=== PATIENT | female | born 1940 | race Caucasian/White ===

== ENCOUNTER 2022-07-23 20:19 | Inpatient (IN) | payer MEDICARE, OTHER, SELFPAY ==
[2022-07-23] VITALS (15 sets, daily range): BP systolic 120–147; BP diastolic 74–94; PULSE 102–148; RESP 16; TEMP 36.6; O2SAT 95–100; BMI 24.2
--- NOTE | 2022-07-23 21:56 | CRLHL7_ITS ---
For Patients: As a result of the Century Cures Act, medical imaging exams and procedure reports are released immediately into your electronic medical record. You may view this report before your referring provider. If you have questions, please contact your health care provider. INDICATION: Abdominal pain, constipated, elevated D-dimer TECHNIQUE: CT Abdomen and pelvis with i.v. contrast. Coronal and sagittal reformats were obtained. CONTRAST: 74 mL Isovue 370 COMPARISON: None FINDINGS: Lower chest: Unremarkable. Moderate calcifications of the mitral valve annulus are present. This can be associated with coronary artery disease. Liver: Unremarkable. Spleen: Unremarkable. Pancreas: Unremarkable. Gallbladder: Unremarkable. Kidney: Unremarkable. No kidney or ureteral stones or obstruction seen. Adrenal: Unremarkable. Bowel: A small to moderate sliding type gastric hiatal hernia (type IV) is present. Severe diverticulosis of the sigmoid colon is noted. Mild wall thickening of the cecum and terminal ileum are present and may be due to secondary inflammatory changes from the suspected adjacent appendicitis. The appendix is distended measuring 18 mm. There is moderate wall thickening and surrounding inflammatory changes noted. No periappendiceal abscess is seen. Vascular: Severe diffuse atherosclerotic calcifications of the abdominal aorta and its tributaries are present. Lymph: Unremarkable. Peritoneum: Unremarkable. No pneumoperitoneum is seen. Trace amount of ascites is present and is likely physiologic in origin. Pelvis: Unremarkable. Soft tissue: Unremarkable. Bone: Grade 2 anterolisthesis with severe degenerative disc disease is seen at L4-5. IMPRESSION: 1. The appendix is distended measuring 18 mm. There is moderate wall thickening and surrounding inflammatory changes noted. No periappendiceal abscess is seen. These findings are consistent with acute appendicitis. Dictated by Orlando Lopez MD @ 07/23/2022 11:40:28 PM Please note that all CT scans at this facility use dose modulation, iterative reconstruction, and/or weight-based dosing when appropriate to reduce radiation dose to as low as reasonably achievable. Dictated by: Orlando Lopez MD @ 07/23/2022 23:40:55 (Electronically Signed)
[2022-07-23] MEDS: dilTIAZem 5 MG/ML inj 10 MG IVP (22:12)
[2022-07-23] MEDS: 0.9 % SODIUM CHLORIDE 1000 ml 1,000 ML IV (22:12)
[2022-07-23 22:23] LABS: Chloride* 107 mmol/L (96-114); Potassium* 3.7 mmol/L (3.6-5.1); Sodium* 137 mmol/L (135-149)
[2022-07-23 22:26] LABS: Blood Urea Nitrogen* 24 mg/dL (7-30); Carbon Dioxide* 17 mmol/L (20-32)
[2022-07-23 22:27] LABS: Calcium* 9.3 mg/dL (8.4-10.6); Glucose* 194 mg/dL (60-115)
[2022-07-23 22:29] LABS: Creatinine* 1.6 mg/dL (0.5-1.5); Estimated Glomerular Filt Rate 32 ml/min
[2022-07-23 22:38] LABS: D Dimer Quantitative* 1.81 ug/ml (0.00-0.50)
[2022-07-23 22:39] LABS: Troponin I* 0.01 ng/mL (0.01-0.04)
[2022-07-23 22:51] LABS: Basophils Absolute Auto 0.01 K/uL (0.00-0.30); Basophils Percent Auto 0.1 % (0.0-3.0); Hematocrit 43.9 % (33.0-51.0); Hemoglobin* 14.2 gm/dL (12.0-16.0); Immature Granulocytes Abs Auto 0.01 K/uL (0.00-0.30); Immature Granulocytes Pct Auto 0.1 %; Lymphocytes Percent Auto 4.2 % (20-44); Mean Corpuscular HGB Conc 32 gm/dL (32-36); Mean Corpuscular Hemoglobin 28 pg (26-34); Mean Corpuscular Volume 86 fL (80-100); Monocytes Percent Auto 5.8 % (0.0-11.0); Neutrophils Percent Auto 89.8 % (42.0-72.0); Platelet Count* 190 K/uL (140-440); Red Blood Count 5.12 m/uL (4.00-5.20); White Blood Count* 6.86 K/uL (4.50-11.00)
[2022-07-23 22:53] LABS: Slide Review Reflex No
--- NOTE | 2022-07-23 22:53 | CRLHL7_ITS ---
For Patients: As a result of the Century Cures Act, medical imaging exams and procedure reports are released immediately into your electronic medical record. You may view this report before your referring provider. If you have questions, please contact your health care provider. INDICATION: Abdominal chest pain, constipated, elevated D-dimer TECHNIQUE: CT chest with i.v. contrast using pulmonary angiographic technique. Coronal and sagittal reformats were obtained. CONTRAST: 75 mL Isovue 370 COMPARISON: None FINDINGS: Cardiovascular: The pulmonary arteries are unremarkable in enhancement with no evidence of acute pulmonary embolism. Calcification of the mitral valve annulus is noted. The heart has an unremarkable appearance and size. Aneurysmal enlargement of the ascending aorta is noted measuring 4 cm in maximal short axis diameter. Moderate atherosclerotic calcifications are noted in the coronary arteries. Mediastinum: No mass or adenopathy seen. Lung: Minimal compressive atelectasis is seen in the medial lower lobes bilaterally. Pleura and pericardium: No sign of pleural effusion seen. No significant pericardial effusion is present. Chest wall and axilla: No mass or adenopathy seen. Bone: Unremarkable for age. Upper abdomen: A moderate sliding type gastric hiatal hernia (type IV) is present. IMPRESSIONS: 1. No CT evidence of acute pulmonary emboli seen. 2. Aneurysmal enlargement of the ascending aorta is noted measuring 4 cm in maximal short axis diameter. 3. Moderate atherosclerotic calcifications are noted in the coronary arteries. Dictated by Orlando Lopez MD @ 07/23/2022 11:47:33 PM Please note that all CT scans at this facility use dose modulation, iterative reconstruction, and/or weight-based dosing when appropriate to reduce radiation dose to as low as reasonably achievable. Dictated by: Orlando Lopez MD @ 07/23/2022 23:49:34 (Electronically Signed)
[2022-07-24] VITALS (46 sets, daily range): BP systolic 98–155; BP diastolic 59–101; PULSE 61–149; RESP 14–16; TEMP 36.2–37.3; O2SAT 93–100
--- NOTE | 2022-07-24 00:01 | ED.ABDPAIN ---
HPI - Abdominal Pain General Chief Complaint: Abdominal Pain <Bob Lindo MD - Last Filed: 07/25/22 07:20> Stated Complaint: throwing up,pain in abdomen <Bob Lindo MD - Last Filed: 07/25/22 07:20> Time Seen by Provider: 07/23/22 21:48 <Bob Lindo MD - Last Filed: 07/25/22 07:20> History of Present Illness HPI narrative: Pt is a 82 year old woman who presents with a 3 day history of low midline abd pain. No fever or chills. No nausea or vomiting. She has been eating less but her bowel movements have been normal. Pain is moderate. Pt overall has not felt well. Pain is located inferior to the umbilicus without ratiation. Pain does not worsen with movement. No dysuria. Pt presents with tachycardia and a rate of 120-140. Pt is unaware that she is tachycardic and has no chest pain or shortness of breath. <Bob Lindo MD - Last Filed: 07/25/22 07:20> Related Data Home Medications: Home Medications Medication Instructions Recorded Confirmed amlodipine 5 mg tablet 5 mg PO DAILY 07/24/22 07/24/22 losartan 100 mg tablet 100 mg PO DAILY 07/24/22 07/24/22 vit C 250 mg-vit E 90 mg-zinc 40 1 tab PO DAILY 07/24/22 07/24/22 mg-copper 1 [id number] capsule (PreserVision AREDS-2) <Bob Lindo MD - Last Filed: 07/25/22 07:20> Allergies/Adverse Reactions: Allergies Allergy/AdvReac Type Severity Reaction Status Date / Time No Known Drug Allergies Allergy Verified 07/23/22 23:27 <Bob Lindo MD - Last Filed: 07/25/22 07:20> Review of Systems Status of ROS Reports: 10 or more systems reviewed and unremarkable except as noted in History and below <Bob Lindo MD - Last Filed: 07/25/22 07:20> [facility] Medical History: Medical History Diverticulosis Glaucoma Hypertension Left ureteral stone Osteopenia Tibia/fibula fracture <Bob Lindo MD - Last Filed: 07/25/22 07:20> Surgical History: Surgical History H/O cataract extraction H/O tubal ligation History of tonsillectomy S/P cystoscopy with ureteral stent placement S/P ORIF (open reduction internal fixation) fracture <Bob Lindo MD - Last Filed: 07/25/22 07:20> Social History: Social History (Updated 07/24/22 @ 12:24 by Alicia Munoz MD) Narrative: lives with , grew up in [place], three adult kids. Luis (daughter) lives in [place] and helps her parents: [phone] Non-prescribed substance use: denies use service: No <Bob Lindo MD - Last Filed: 07/25/22 07:20> Exam Narrative: Exam Narrative: EXAM GENERAL: Patient appears comfortable and well. EYES: No scleral icterus. ENT: Tympanic membranes and oropharynx normal. THYROID: no thyroid nodules or thyromegaly. LYMPH: No supraclavicular or cervical lymphadenopathy. SKIN: Visible skin seen during exam normal or with benign process only. EXT: No dependent lower extremity pedal edema. HEART: Regular rate and rhythm with no murmurs, rubs, or gallops. LUNGS: Clear to auscultation bilaterally with no crackles or wheezes. ABD: Hypoactive bowel sounds. Tenderness to palpation in the right lower quadrant and midline. PSYCH: Good eye contact, speech is not pressured. <Bob Lindo MD - Last Filed: 07/25/22 07:20> Const: Vital Signs, click to edit/add: Vital Signs - 24 hr 07/24/22 08:00 07/24/22 08:05 07/24/22 08:30 Temperature 99.1 F 98.5 F Pulse Rate 89 88 78 Pulse Rate [Left P ulse Oximeter] Respiratory Rate 14 14 14 Blood Pressure 120/80 119/76 111/65 Blood Pressure [Ri ght Arm] Pulse Oximetry 100 99 97 Oxygen Delivery Me thod Blow By Blow By Blow By Oxygen Flow Rate 15 15 15 Fraction of Inspir ed Oxygen 100 100 40 07/24/22 08:10 07/24/22 08:15 07/24/22 08:20 Temperature Pulse Rate 85 87 89 Pulse Rate [Left P ulse Oximeter] Respiratory Rate 14 14 14 Blood Pressure 101/67 117/65 112/79 Blood Pressure [Ri ght Arm] Pulse Oximetry 99 97 97 Oxygen Delivery Me thod Blow By Blow By Blow By Oxygen Flow Rate 15 15 15 Fraction of Inspir ed Oxygen 100 70 40 07/24/22 08:25 07/24/22 08:35 07/24/22 08:57 Temperature Pulse Rate 88 76 73 Pulse Rate [Left P ulse Oximeter] Respiratory Rate 14 14 Blood Pressure 103/69 115/71 Blood Pressure [Ri ght Arm] Pulse Oximetry 97 97 Oxygen Delivery Me thod Blow By Blow By Oxygen Flow Rate 15 15 Fraction of Inspir ed Oxygen 40 40 07/24/22 08:50 07/24/22 09:00 Temperature 97.1 F L 97.5 F L Pulse Rate 61 Pulse Rate [Left P ulse Oximeter] 74 Respiratory Rate 16 16 Blood Pressure Blood Pressure [Ri ght Arm] 123/76 113/67 Pulse Oximetry 96 Oxygen Delivery Me thod Room Air Blow By Room Air Oxygen Flow Rate Fraction of Inspir ed Oxygen <Bob Lindo MD - Last Filed: 07/25/22 07:20> Vital Signs, click to edit/add: Vital Signs - 24 hr 07/24/22 08:00 07/24/22 08:05 07/24/22 08:30 Temperature 99.1 F 98.5 F Pulse Rate 89 88 78 Pulse Rate [Left P ulse Oximeter] Respiratory Rate 14 14 14 Blood Pressure 120/80 119/76 111/65 Blood Pressure [Ri ght Arm] Pulse Oximetry 100 99 97 Oxygen Delivery Me thod Blow By Blow By Blow By Oxygen Flow Rate 15 15 15 Fraction of Inspir ed Oxygen 100 100 40 07/24/22 08:10 07/24/22 08:15 07/24/22 08:20 Temperature Pulse Rate 85 87 89 Pulse Rate [Left P ulse Oximeter] Respiratory Rate 14 14 14 Blood Pressure 101/67 117/65 112/79 Blood Pressure [Ri ght Arm] Pulse Oximetry 99 97 97 Oxygen Delivery Me thod Blow By Blow By Blow By Oxygen Flow Rate 15 15 15 Fraction of Inspir ed Oxygen 100 70 40 07/24/22 08:25 07/24/22 08:35 07/24/22 08:57 Temperature Pulse Rate 88 76 73 Pulse Rate [Left P ulse Oximeter] Respiratory Rate 14 14 Blood Pressure 103/69 115/71 Blood Pressure [Ri ght Arm] Pulse Oximetry 97 97 Oxygen Delivery Me thod Blow By Blow By Oxygen Flow Rate 15 15 Fraction of Inspir ed Oxygen 40 40 07/24/22 08:50 07/24/22 09:00 Temperature 97.1 F L 97.5 F L Pulse Rate 61 Pulse Rate [Left P ulse Oximeter] 74 Respiratory Rate 16 16 Blood Pressure Blood Pressure [Ri ght Arm] 123/76 113/67 Pulse Oximetry 96 Oxygen Delivery Me thod Room Air Blow By Room Air Oxygen Flow Rate Fraction of Inspir ed Oxygen <Amanda Tracy MD - Last Filed: 07/24/22 04:36> Course Course Hospital Course: Pt seen and examined. EKG upon my review confirms Atrial fibrillation which is a new finding. Pt given 10 mg of IV Cardizem. D dimer returns high. CT of the chest negative for PE. CT of abd positive for Appendicitis. <Bob Lindo MD - Last Filed: 07/25/22 07:20> Vital Signs Vital signs: Initial Vital Signs Temperature 97.8 F 07/23/22 21:04 Temperature Source Temporal Artery Scan 07/23/22 21:04 Pulse Rate 148 H 07/23/22 21:04 Pulse Rhythm 07/23/22 21:04 Respiratory Rate 16 07/23/22 21:04 Blood Pressure 125/91 H 07/23/22 21:04 Blood Pressure Mean 102 07/23/22 21:04 Blood Pressure Position Sitting 07/23/22 21:04 Pulse Oximetry 97 07/23/22 21:04 Oxygen Delivery Method 07/23/22 21:04 Vital Signs Temperature 97.8 F 07/23/22 21:04 Pulse Rate 148 H 07/23/22 21:04 Respiratory Rate 16 07/23/22 21:04 Blood Pressure 125/91 H 07/23/22 21:04 Pulse Oximetry 97 07/23/22 21:04 Oxygen Delivery Method 07/23/22 21:04 Temperature 98.6 F 07/25/22 04:00 Pulse Rate 92 07/25/22 04:00 Respiratory Rate 16 07/25/22 04:00 Blood Pressure 122/89 07/25/22 04:00 Pulse Oximetry 93 07/25/22 04:00 Oxygen Delivery Method 07/25/22 04:00 Oxygen Flow Rate 15 07/24/22 08:35 Fraction of Inspired Oxygen 40 07/24/22 08:35 <Bob Lindo MD - Last Filed: 07/25/22 07:20> Initial Vital Signs Temperature 97.8 F 07/23/22 21:04 Temperature Source Temporal Artery Scan 07/23/22 21:04 Pulse Rate 148 H 07/23/22 21:04 Pulse Rhythm 07/23/22 21:04 Respiratory Rate 16 07/23/22 21:04 Blood Pressure 125/91 H 07/23/22 21:04 Blood Pressure Mean 102 07/23/22 21:04 Blood Pressure Position Sitting 07/23/22 21:04 Pulse Oximetry 97 07/23/22 21:04 Oxygen Delivery Method 07/23/22 21:04 Vital Signs Temperature 97.8 F 07/23/22 21:04 Pulse Rate 148 H 07/23/22 21:04 Respiratory Rate 16 07/23/22 21:04 Blood Pressure 125/91 H 07/23/22 21:04 Pulse Oximetry 97 07/23/22 21:04 Oxygen Delivery Method 07/23/22 21:04 Temperature 98.6 F 07/25/22 04:00 Pulse Rate 92 07/25/22 04:00 Respiratory Rate 16 07/25/22 04:00 Blood Pressure 122/89 07/25/22 04:00 Pulse Oximetry 93 07/25/22 04:00 Oxygen Delivery Method 07/25/22 04:00 Oxygen Flow Rate 15 07/24/22 08:35 Fraction of Inspired Oxygen 40 07/24/22 08:35 <Amanda Tracy MD - Last Filed: 07/24/22 04:36> MDM - Abdominal Pain MDM Narrative Medical decision making narrative: Pt presents with abd pain. Found to have both new onset atrial fibrillation and actue appendicitis. Pt treated initially with IV fluids and 10 mg of IV Cardizem. Pt rate improved initially but pulse increased again. Pt started on IV Cardizem drip and case discussed with Surgery. Pt will be going to the OR. No beds on med surg. Pt will remain in ED until surgery. Case signed out to partner. Zosyn given. BC collected. <Bob Lindo MD - Last Filed: 07/25/22 07:20> Pt presents with abd pain. Found to have both new onset atrial fibrillation and actue appendicitis. Pt treated initially with IV fluids and 10 mg of IV Cardizem. Pt rate improved initially but pulse increased again. Pt started on IV Cardizem drip and case discussed with Surgery. Pt will be going to the OR. No beds on med surg. Pt will remain in ED until surgery. Case signed out to partner. Zosyn given. BC collected. Dr. Tracy- begin Cardizem drip at 5, titrating to 10. This kept pulse is right around 90 most of the night. Blood pressure remains well controlled. Awaiting surgical consult in a.m. and anticipate appendectomy. <Amanda Tracy MD - Last Filed: 07/24/22 04:36> Lab Data Labs: Lab Results 07/23/22 07/23/22 07/23/22 Range/Units 22:00 22:00 22:00 WBC 6.86 (4.50-11.00) K/uL RBC 5.12 (4.00-5.20) m/uL Hgb 14.2 (12.0-16.0) gm/dL Hct 43.9 (33.0-51.0) % MCV 86 (80-100) fL MCH 28 (26-34) pg MCHC 32 (32-36) gm/dL RDW Coeff of Lillian 14.0 (11.5-15.5) % Plt Count 190 (140-440) K/uL Neut % (Auto) 89.8 H (42.0-72.0) % Lymph % (Auto) 4.2 L (20-44) % [place] % (Auto) 5.8 (0.0-11.0) % Eos % (Auto) 0.0 (0.0-7.0) % Baso % (Auto) 0.1 (0.0-3.0) % Neut # (Auto) 6.20 (1.7-7.0) K/uL Lymph # (Auto) 0.30 L (0.90-2.90) K/uL [place] # (Auto) 0.40 (0.00-0.90) K/UL Eos # (Auto) 0.00 (0.00-0.50) K/uL Baso # (Auto) 0.01 (0.00-0.30) K/uL Abs Immat Gran (auto) 0.01 (0.00-0.30) K/uL Imm/Tot Granulo (auto) 0.1 % D-Dimer Quant (PE/DVT) 1.81 H (0.00-0.50) ug/ml Sodium 137 (135-149) mmol/L Potassium 3.7 (3.6-5.1) mmol/L Chloride 107 (96-114) mmol/L Carbon Dioxide 17 L (20-32) mmol/L BUN 24 (7-30) mg/dL Creatinine 1.6 H (0.5-1.5) mg/dL Estimated Creat Clear 24.50 Estimated GFR 32 ml/min Glucose 194 H (60-115) mg/dL Calcium 9.3 (8.4-10.6) mg/dL Troponin I 0.01 (0.01-0.04) ng/mL Urine Color (Yellow) Urine Appearance (Clear) Urine pH (5.0-8.5) Ur Specific [place] (1.000-1.030) Urine Protein (Negative) Urine Glucose (UA) (Negative) Urine Ketones (Negative) Urine Blood (Negative) Urine Nitrite (Negative) Urine Bilirubin (Negative) Urine Urobilinogen (0.2-1.0) Ur Leukocyte Esterase (Negative) Urine RBC (0-2) Urine WBC (0-5) Ur Squamous Epith Cells (None-Few) Amorphous Sediment (None) Urine Bacteria (None) Urine Mucus (None) SARS-CoV-2 (PCR) (Negative) Influenza Type A (PCR) (Negative) Influenza Type B (PCR) (Negative) RSV (PCR) (Negative) 07/24/22 07/24/22 Range/Units 00:36 02:15 WBC (4.50-11.00) K/uL RBC (4.00-5.20) m/uL Hgb (12.0-16.0) gm/dL Hct (33.0-51.0) % MCV (80-100) fL MCH (26-34) pg MCHC (32-36) gm/dL RDW Coeff of Lillian (11.5-15.5) % Plt Count (140-440) K/uL Neut % (Auto) (42.0-72.0) % Lymph % (Auto) (20-44) % [place] % (Auto) (0.0-11.0) % Eos % (Auto) (0.0-7.0) % Baso % (Auto) (0.0-3.0) % Neut # (Auto) (1.7-7.0) K/uL Lymph # (Auto) (0.90-2.90) K/uL [place] # (Auto) (0.00-0.90) K/UL Eos # (Auto) (0.00-0.50) K/uL Baso # (Auto) (0.00-0.30) K/uL Abs Immat Gran (auto) (0.00-0.30) K/uL Imm/Tot Granulo (auto) % D-Dimer Quant (PE/DVT) (0.00-0.50) ug/ml Sodium (135-149) mmol/L Potassium (3.6-5.1) mmol/L Chloride (96-114) mmol/L Carbon Dioxide (20-32) mmol/L BUN (7-30) mg/dL Creatinine (0.5-1.5) mg/dL Estimated Creat Clear Estimated GFR ml/min Glucose (60-115) mg/dL Calcium (8.4-10.6) mg/dL Troponin I (0.01-0.04) ng/mL Urine Color Yellow (Yellow) Urine Appearance Cloudy A (Clear) Urine pH 5.0 (5.0-8.5) Ur Specific [place] 1.010 (1.000-1.030) Urine Protein 2+ A (Negative) Urine Glucose (UA) Negative (Negative) Urine Ketones Trace A (Negative) Urine Blood 1+ A (Negative) Urine Nitrite Negative (Negative) Urine Bilirubin Negative (Negative) Urine Urobilinogen 1.0 (0.2-1.0) Ur Leukocyte Esterase Trace A (Negative) Urine RBC 0-2 (0-2) Urine WBC 2-5 (0-5) Ur Squamous Epith Cells Few (None-Few) Amorphous Sediment Many A (None) Urine Bacteria Moderate A (None) Urine Mucus Few A (None) SARS-CoV-2 (PCR) Negative SARS-CoV-2 (Negative) Influenza Type A (PCR) Negative PCR FLU A (Negative) Influenza Type B (PCR) Negative PCR FLU B (Negative) RSV (PCR) Negative PCR RSV (Negative) <Bob Lindo MD - Last Filed: 07/25/22 07:20> Lab Results 07/23/22 07/23/22 07/23/22 Range/Units 22:00 22:00 22:00 WBC 6.86 (4.50-11.00) K/uL RBC 5.12 (4.00-5.20) m/uL Hgb 14.2 (12.0-16.0) gm/dL Hct 43.9 (33.0-51.0) % MCV 86 (80-100) fL MCH 28 (26-34) pg MCHC 32 (32-36) gm/dL RDW Coeff of Lillian 14.0 (11.5-15.5) % Plt Count 190 (140-440) K/uL Neut % (Auto) 89.8 H (42.0-72.0) % Lymph % (Auto) 4.2 L (20-44) % [place] % (Auto) 5.8 (0.0-11.0) % Eos % (Auto) 0.0 (0.0-7.0) % Baso % (Auto) 0.1 (0.0-3.0) % Neut # (Auto) 6.20 (1.7-7.0) K/uL Lymph # (Auto) 0.30 L (0.90-2.90) K/uL [place] # (Auto) 0.40 (0.00-0.90) K/UL Eos # (Auto) 0.00 (0.00-0.50) K/uL Baso # (Auto) 0.01 (0.00-0.30) K/uL Abs Immat Gran (auto) 0.01 (0.00-0.30) K/uL Imm/Tot Granulo (auto) 0.1 % D-Dimer Quant (PE/DVT) 1.81 H (0.00-0.50) ug/ml Sodium 137 (135-149) mmol/L Potassium 3.7 (3.6-5.1) mmol/L Chloride 107 (96-114) mmol/L Carbon Dioxide 17 L (20-32) mmol/L BUN 24 (7-30) mg/dL Creatinine 1.6 H (0.5-1.5) mg/dL Estimated Creat Clear 24.50 Estimated GFR 32 ml/min Glucose 194 H (60-115) mg/dL Calcium 9.3 (8.4-10.6) mg/dL Troponin I 0.01 (0.01-0.04) ng/mL Urine Color (Yellow) Urine Appearance (Clear) Urine pH (5.0-8.5) Ur Specific [place] (1.000-1.030) Urine Protein (Negative) Urine Glucose (UA) (Negative) Urine Ketones (Negative) Urine Blood (Negative) Urine Nitrite (Negative) Urine Bilirubin (Negative) Urine Urobilinogen (0.2-1.0) Ur Leukocyte Esterase (Negative) Urine RBC (0-2) Urine WBC (0-5) Ur Squamous Epith Cells (None-Few) Amorphous Sediment (None) Urine Bacteria (None) Urine Mucus (None) SARS-CoV-2 (PCR) (Negative) Influenza Type A (PCR) (Negative) Influenza Type B (PCR) (Negative) RSV (PCR) (Negative) 07/24/22 07/24/22 Range/Units 00:36 02:15 WBC (4.50-11.00) K/uL RBC (4.00-5.20) m/uL Hgb (12.0-16.0) gm/dL Hct (33.0-51.0) % MCV (80-100) fL MCH (26-34) pg MCHC (32-36) gm/dL RDW Coeff of Lillian (11.5-15.5) % Plt Count (140-440) K/uL Neut % (Auto) (42.0-72.0) % Lymph % (Auto) (20-44) % [place] % (Auto) (0.0-11.0) % Eos % (Auto) (0.0-7.0) % Baso % (Auto) (0.0-3.0) % Neut # (Auto) (1.7-7.0) K/uL Lymph # (Auto) (0.90-2.90) K/uL [place] # (Auto) (0.00-0.90) K/UL Eos # (Auto) (0.00-0.50) K/uL Baso # (Auto) (0.00-0.30) K/uL Abs Immat Gran (auto) (0.00-0.30) K/uL Imm/Tot Granulo (auto) % D-Dimer Quant (PE/DVT) (0.00-0.50) ug/ml Sodium (135-149) mmol/L Potassium (3.6-5.1) mmol/L Chloride (96-114) mmol/L Carbon Dioxide (20-32) mmol/L BUN (7-30) mg/dL Creatinine (0.5-1.5) mg/dL Estimated Creat Clear Estimated GFR ml/min Glucose (60-115) mg/dL Calcium (8.4-10.6) mg/dL Troponin I (0.01-0.04) ng/mL Urine Color Yellow (Yellow) Urine Appearance Cloudy A (Clear) Urine pH 5.0 (5.0-8.5) Ur Specific [place] 1.010 (1.000-1.030) Urine Protein 2+ A (Negative) Urine Glucose (UA) Negative (Negative) Urine Ketones Trace A (Negative) Urine Blood 1+ A (Negative) Urine Nitrite Negative (Negative) Urine Bilirubin Negative (Negative) Urine Urobilinogen 1.0 (0.2-1.0) Ur Leukocyte Esterase Trace A (Negative) Urine RBC 0-2 (0-2) Urine WBC 2-5 (0-5) Ur Squamous Epith Cells Few (None-Few) Amorphous Sediment Many A (None) Urine Bacteria Moderate A (None) Urine Mucus Few A (None) SARS-CoV-2 (PCR) Negative SARS-CoV-2 (Negative) Influenza Type A (PCR) Negative PCR FLU A (Negative) Influenza Type B (PCR) Negative PCR FLU B (Negative) RSV (PCR) Negative PCR RSV (Negative) <Amanda Tracy MD - Last Filed: 07/24/22 04:36> Discharge Plan Discharge Prescriptions: No Action amlodipine 5 mg tablet 5 mg PO DAILY losartan 100 mg tablet 100 mg PO DAILY PreserVision AREDS-2 250-90-40-1 mg capsule 1 tab PO DAILY <Bob Lindo MD - Last Filed: 07/25/22 07:20> Follow Up/Referrals: Bc Granger MD [Primary Care Provider] - <Bob Lindo MD - Last Filed: 07/25/22 07:20>
[2022-07-24] MEDS: dilTIAZem HCL 125 MG in 0.9 % SODIUM CHLORIDE 100 ml 100 ML IVPB (00:30)
[2022-07-24] MEDS: PIPERACILLIN/TAZOBACTAM 3.375 GM in 0.9 % SODIUM CHLORIDE Mini-bag 100 ML IVPB ×3 (01:34→20:09)
[2022-07-24 01:35] LABS: PCR FLU A Negative PCR FLU A (Negative); PCR FLU B Negative PCR FLU B (Negative); PCR RSV Negative PCR RSV (Negative)
[2022-07-24] MEDS: 0.9 % SODIUM CH + KCL 20 mEq/L 1,000 ML 100 ML IV (01:35)
[2022-07-24 01:41] LABS: SARS PCR* Negative SARS-CoV-2 (Negative)
--- NOTE | 2022-07-24 02:09 | ED.NURSE ---
pt taken to restroom via wheelchair
[2022-07-24 02:19] LABS: Appearance Urine Cloudy (Clear); Bilirubin Urine Negative (Negative); Blood Urine 1+ (Negative); Color Urine Yellow (Yellow); Glucose Urine Negative (Negative); Ketones Urine Trace (Negative); Leukocyte Esterase Urine Trace (Negative); Nitrite Urine Negative (Negative); Protein Urine 2+ (Negative)
[2022-07-24 02:26] LABS: Amorphous Sediment Urine Many; Bacteria Urine Moderate; Mucus Urine Few; RBC Urine 0-2 (0-2); Squamous Epithelial Cell Urine Few (None-Few)
--- NOTE | 2022-07-24 06:02 | P.GSCN_ITS ---
History of Present Illness Consult details Date Seen: 07/24/22 Consult date: 07/24/22 Reason for consult: abdominal pain Narrative: Patient presented to the emergency department with worsening lower abdominal pain. She states that the pain started about 4 days ago. This is pain unlike anything she has experienced before. The pain initially would come and go, but has increased in intensity over the last day and become more persistent. She does report a decrease in appetite and associated nausea, no emesis. She also describes ?constipation and diarrhea? over the last few days. Her last bowel movement was yesterday. No reported fevers or chills at home. Abdominal surgery history is positive for a kidney stone operation 2 years earlier. She is otherwise healthy and not on any blood thinners. While being evaluated in the emergency department evidence of new onset AFib RVR. This is currently being controlled with a diltiazem drip with pressure is stable. She denies any history of previous documented arrhythmias. Review of Systems Status of ROS: Reports: 10 or more systems reviewed and unremarkable except as noted in History and below [facility] Medical History Glaucoma Hypertension Surgical History History of tonsillectomy Social History Non-prescribed substance use: denies use service: No Meds Home Medications and Allergies Allergies Allergy/AdvReac Type Severity Reaction Status Date / Time No Known Drug Allergies Allergy Verified 07/23/22 23:27 Exam Narrative: Exam Narrative: General: Alert and oriented, no acute distress, nontoxic in appearance. Respiratory: Equal breath rise bilaterally, maintained on room air CV: Irregularly irregular rhythm, rate controlled. Well perfused Abdomen: Diffusely tender in the lower abdomen with some guarding and rebound. Soft with mild distention. Const: Vital Signs, click to edit/add: Vital Signs - 24 hr 07/23/22 21:04 07/23/22 22:10 07/23/22 22:13 Temperature 97.8 F Pulse Rate 135 H 147 H Pulse Rate [Left P ulse Oximeter] 148 H Respiratory Rate 16 Blood Pressure 120/94 H Blood Pressure [Ri ght Upper Arm] 125/91 H Pulse Oximetry 97 97 97 Oxygen Delivery Me thod Room Air 07/23/22 22:16 07/23/22 22:20 07/23/22 22:23 Temperature Pulse Rate 134 H 136 H Pulse Rate [Left P ulse Oximeter] Respiratory Rate Blood Pressure 131/77 144/74 H Blood Pressure [Ri ght Upper Arm] Pulse Oximetry 96 96 100 Oxygen Delivery Me thod 07/23/22 22:31 07/23/22 22:40 07/23/22 22:42 Temperature Pulse Rate 141 H 131 H Pulse Rate [Left P ulse Oximeter] Respiratory Rate Blood Pressure 141/89 H Blood Pressure [Ri ght Upper Arm] Pulse Oximetry 97 99 96 Oxygen Delivery Me thod 07/23/22 22:50 07/23/22 22:35 07/23/22 23:39 Temperature Pulse Rate 102 H 122 H Pulse Rate [Left P ulse Oximeter] Respiratory Rate Blood Pressure Blood Pressure [Ri ght Upper Arm] Pulse Oximetry 96 97 97 Oxygen Delivery Me thod 07/23/22 23:40 07/23/22 23:46 07/23/22 23:50 Temperature Pulse Rate 120 H 135 H Pulse Rate [Left P ulse Oximeter] Respiratory Rate Blood Pressure 147/87 H Blood Pressure [Ri ght Upper Arm] Pulse Oximetry 99 95 98 Oxygen Delivery Me thod 07/24/22 00:00 07/24/22 00:02 07/24/22 00:10 Temperature Pulse Rate 146 H 117 H 124 H Pulse Rate [Left P ulse Oximeter] Respiratory Rate Blood Pressure 155/93 H Blood Pressure [Ri ght Upper Arm] Pulse Oximetry 98 97 97 Oxygen Delivery Me thod 07/24/22 00:20 07/24/22 00:22 07/24/22 00:30 Temperature Pulse Rate 149 H 129 H 139 H Pulse Rate [Left P ulse Oximeter] Respiratory Rate Blood Pressure 153/101 H Blood Pressure [Ri ght Upper Arm] Pulse Oximetry 99 97 97 Oxygen Delivery Me thod 07/24/22 00:50 07/24/22 01:00 07/24/22 01:02 Temperature Pulse Rate 118 H 135 H Pulse Rate [Left P ulse Oximeter] Respiratory Rate Blood Pressure 140/81 H Blood Pressure [Ri ght Upper Arm] Pulse Oximetry 100 97 100 Oxygen Delivery Me thod 07/24/22 01:03 07/24/22 01:30 07/24/22 02:01 Temperature Pulse Rate 89 104 H 114 H Pulse Rate [Left P ulse Oximeter] Respiratory Rate Blood Pressure Blood Pressure [Ri ght Upper Arm] Pulse Oximetry 99 97 97 Oxygen Delivery Me thod 07/24/22 02:25 07/24/22 02:30 07/24/22 02:32 Temperature Pulse Rate 128 H 109 H 108 H Pulse Rate [Left P ulse Oximeter] Respiratory Rate Blood Pressure 128/77 122/72 Blood Pressure [Ri ght Upper Arm] Pulse Oximetry 96 96 97 Oxygen Delivery Me thod 07/24/22 03:00 07/24/22 03:01 07/24/22 03:32 Temperature Pulse Rate 120 H 94 104 H Pulse Rate [Left P ulse Oximeter] Respiratory Rate Blood Pressure 129/82 118/76 Blood Pressure [Ri ght Upper Arm] Pulse Oximetry 96 96 Oxygen Delivery Me thod 07/24/22 04:02 07/24/22 04:32 07/24/22 05:02 Temperature Pulse Rate 98 Pulse Rate [Left P ulse Oximeter] Respiratory Rate Blood Pressure 118/78 118/74 112/76 Blood Pressure [Ri ght Upper Arm] Pulse Oximetry Oxygen Delivery Me thod 07/24/22 05:32 Temperature Pulse Rate Pulse Rate [Left P ulse Oximeter] Respiratory Rate Blood Pressure 126/73 Blood Pressure [Ri ght Upper Arm] Pulse Oximetry Oxygen Delivery Me thod Results Labs Labs: Abnormal lab results 07/23/22 07/23/22 07/23/22 Range/Units 22:00 22:00 22:00 Neut % (Auto) 89.8 H (42.0-72.0) % Lymph % (Auto) 4.2 L (20-44) % Lymph # (Auto) 0.30 L (0.90-2.90) K/uL D-Dimer Quant (PE/DVT) 1.81 H (0.00-0.50) ug/ml Carbon Dioxide 17 L (20-32) mmol/L Creatinine 1.6 H (0.5-1.5) mg/dL Glucose 194 H (60-115) mg/dL Urine Appearance (Clear) Urine Protein (Negative) Urine Ketones (Negative) Urine Blood (Negative) Ur Leukocyte Esterase (Negative) Amorphous Sediment (None) Urine Bacteria (None) Urine Mucus (None) 07/24/22 Range/Units 02:15 Neut % (Auto) (42.0-72.0) % Lymph % (Auto) (20-44) % Lymph # (Auto) (0.90-2.90) K/uL D-Dimer Quant (PE/DVT) (0.00-0.50) ug/ml Carbon Dioxide (20-32) mmol/L Creatinine (0.5-1.5) mg/dL Glucose (60-115) mg/dL Urine Appearance Cloudy A (Clear) Urine Protein 2+ A (Negative) Urine Ketones Trace A (Negative) Urine Blood 1+ A (Negative) Ur Leukocyte Esterase Trace A (Negative) Amorphous Sediment Many A (None) Urine Bacteria Moderate A (None) Urine Mucus Few A (None) Diabetes panel 07/23/22 Range/Units 22:00 Sodium 137 (135-149) mmol/L Potassium 3.7 (3.6-5.1) mmol/L Chloride 107 (96-114) mmol/L Carbon Dioxide 17 L (20-32) mmol/L BUN 24 (7-30) mg/dL Creatinine 1.6 H (0.5-1.5) mg/dL Glucose 194 H (60-115) mg/dL Calcium 9.3 (8.4-10.6) mg/dL Calcium panel 07/23/22 Range/Units 22:00 Calcium 9.3 (8.4-10.6) mg/dL Pituitary panel 07/23/22 Range/Units 22:00 Sodium 137 (135-149) mmol/L Potassium 3.7 (3.6-5.1) mmol/L Chloride 107 (96-114) mmol/L Carbon Dioxide 17 L (20-32) mmol/L BUN 24 (7-30) mg/dL Creatinine 1.6 H (0.5-1.5) mg/dL Glucose 194 H (60-115) mg/dL Calcium 9.3 (8.4-10.6) mg/dL Adrenal panel 07/23/22 Range/Units 22:00 Sodium 137 (135-149) mmol/L Potassium 3.7 (3.6-5.1) mmol/L Chloride 107 (96-114) mmol/L Carbon Dioxide 17 L (20-32) mmol/L BUN 24 (7-30) mg/dL Creatinine 1.6 H (0.5-1.5) mg/dL Glucose 194 H (60-115) mg/dL Calcium 9.3 (8.4-10.6) mg/dL All other labs normal. Imaging Abdomen CT scan report/results: report reviewed and image reviewed Assessment and Plan Assessment and plan (1) Acute appendicitis: Status: Acute Plan Patient is an 82-year-old female with a 4 day history worsening abdominal pain. Workup was obtained in the emergency department with evidence of new onset AFib RVR. Suspect that her arrhythmia is likely secondary to ongoing infection. She is currently being rate controlled with pressures stable. A CT scan was obtained which demonstrates findings consistent with acute appendicitis, no evidence of perforation on the imaging but there is a moderate amount of surrounding inflammatory changes a small amount of fluid. Given the time course in the patient's clinical exam of guarding and rebound tenderness, suspicion for perforation. She has been started on IV antibiotics. I discussed the treatment options with the patient including non-surgical and surgical options. I recommended laparoscopic appendectomy. The risks of surgery were reviewed with the patient including the risks of bleeding, post-operative wound or intra-abdominal infection, injury to abdominal structures and possible conversion to an open operation. We also discussed anesthetic complications including VT, stroke, respiratory failure and blood clots. The patient voiced an understanding of our conversation, had the opportunity to ask questions, agreed to accept the risks of surgery and asked that we proceed with surgery. -OR for laparoscopic appendectomy
[2022-07-24] MEDS: LACTATED RINGERS 1000 ML 1,000 ML 100 ML IV ×4 (06:19→20:27)
--- NOTE | 2022-07-24 06:19 | ED.NURSE ---
HEATING UNIT INSTALLER taking pt to OR suite
[2022-07-24] MEDS: PIPERACILLIN/TAZOBACTAM 3.375 GM INJ IVP (06:35)
[2022-07-24] MEDS: BUPIVACAINE 0.25% 30 ML INJECTION (07:30)
--- NOTE | 2022-07-24 07:52 | P.GSOP_ITS ---
Operative Note Date of procedure: 07/24/22 Type of Procedure: Laparoscopic appendectomy Procedure Description: After discussing the risks and benefits of the procedure, the patient signed informed consent.? The operative site was marked and the patient was brought to the operating room and placed on the operating table in supine position.? Care was taken to pad the patient's pressure points.?? The patient was then intubated by anesthesia.?? The operative site was then prepped and draped in the usual sterile fashion.? A time-out was then performed. Entrance to the abdomen was obtained via a 5 mm optical trocar in the left upper quadrant. The abdomen was insufflated and briefly surveyed for any signs of injury. There were none. The abdomen was briefly examined with evidence of purulence throughout the abdomen and hemorrhagic irritation to the peritoneal l ining. A 12 mm port was placed lateral to the umbilicus as well as a 5 mm port in the left lower quadrant under direct vision. A small umbilical adhesion was taken down with cautery. The patient was then placed in Trendelenburg position with the right side up. The small bowel was gently moved out of the way. Lateral adhesions of the cecum were dissected away carefully with the LigaSure device. The appendiceal base was visualized and a mesenteric window created. The appendiceal base was stapled with a 45 mm bowel load. The cecum was hemorrhagic and irritated, but no areas of necrosis were apparent. The staple line was examined closely and was intact across healthy colonic tissue. The appendix was then freed carefully with blunt dissection. A moderate amount of purulence was removed from around the appendix. There was a moderate amount of necrotic fat. As well. The appendix was able to be removed in its entirety. A small perforation was visualized on the specimen with some stool contamination within the abscess cavity. The appendix was then removed from the abdomen using an Endo-Catch bag. The specimen was sent to pathology. The abscess cavity was gently irrigated. Hemostasis was assured. The 12 mm port site fascia was closed with 0 Vicryl. The skin was then closed with absorbable subcuticular suture. Sterile dressings were then applied. Instrument sponge and needle counts were correct at the end of the case. The patient was then woken and transported to the PACU in stable condition. ? Findings: Perforated appendix with evidence of purulent peritonitis intraoperatively. Anesthesia: GETA Surgeon: Estela Sadler MD Estimated blood loss (mL): 2 Condition: stable Disposition: PACU
--- NOTE | 2022-07-24 08:08 | W.ANESCHARGE ---
Anesthesia Charges Start Date/Time Anesthesia Start Date: 07/24/22 Anesthesia Start Time: 06:19 Stop Date/Time Anesthesia Stop Date: 07/24/22 Anesthesia Stop Time: 08:00 Summary Emergency: Yes Extremes of Age: Over 68-CPT 47384
--- NOTE | 2022-07-24 08:27 | W.ANESCHARGE ---
Anesthesia Charges Start Date/Time Anesthesia Start Date: 07/24/22 Anesthesia Start Time: 06:19 Stop Date/Time Anesthesia Stop Date: 07/24/22 Anesthesia Stop Time: 08:00 Summary Emergency: Yes Extremes of Age: Over 68-CPT 91862
--- NOTE | 2022-07-24 08:28 | W.PM.NB ---
Nerve Block Nerve Block Time Seen by Provider: 07:50 Date Seen: 07/24/22 Type of block requested by surgeon for post-operative analgesia: TAP Side: bilateral Time out performed: Yes Verification of patient name: Yes Verification of date of : Yes Site marking: site marked Name of person performing procedure: Manuel Continuous monitoring Was continuous monitoring of O2 sat, B/P, court recording monitor, recorded every 15 minutes?: Yes Procedure Checklist: sterile prep, needles and gloves Ultrasound guided. Images saved: Yes Medications given in 5ml increments after negative aspiration: Marcaine %: 0.25 mL: 30 Needle gauge: 20 and Exparel mL: 10 Patient tolerated procedure well: Yes Additional comments: Needle noted adjacent to nerve Block Charges Block Charge (with Pro Fee): TAP Bilateral Use of Ultrasound Machine for Block: Yes- US Guidance/pain block
[2022-07-24 11:26] LABS: HCO3 VBG 21 mmol/L (21-28); PCO2 VBG 36 mmHG (40-50); PO2 VBG 38.8 mmHG (25-47); pH VBG 7.372 (7.32-7.43)
[2022-07-24 11:46] LABS: Chloride* 112 mmol/L (96-114); Sodium* 140 mmol/L (135-149)
[2022-07-24 11:47] LABS: Potassium* 4.5 mmol/L (3.6-5.1)
[2022-07-24 11:49] LABS: Carbon Dioxide* 18 mmol/L (20-32); Creatinine* 1.5 mg/dL (0.5-1.5); Est. Creatinine Clearance* 26.14; Estimated Glomerular Filt Rate 34 ml/min
[2022-07-24 11:50] LABS: Blood Urea Nitrogen* 23 mg/dL (7-30); Calcium* 8.4 mg/dL (8.4-10.6); Glucose* 171 mg/dL (60-115); Magnesium* 1.8 mg/dL (1.5-2.6)
--- NOTE | 2022-07-24 12:05 | P.IMCN_ITS ---
Date of Consult Consult date: 07/24/22 Requesting Physician: General Surgery Primary Care Provider: Bc Granger MD Consult Narrative Reason for consult: Narrative: HOSPITALIST CONSULT The hospital medicine team was asked by gen surgery team to manage the patient's acute atrial fibrillation with RVR Patient was brought back in stable condition from the PACU approximately 8 this morning. She was on a diltiazem drip with a rate stabilized AFib. Stable blood pressures. Stable airway. Mentating normally. Hospital Day # 1 Post Op Day # 0, Laparoscopic appendectomy 07/24/22 Perforated appendix with evidence of purulent peritonitis intraoperatively. Estimated blood loss (mL): 2 Afebrile, T-max 99.1? Blood pressure 115/71, 111/65, 103/69 Pulse rate 70s and 80s, AFib, now rate controlled. Heart rate previously high of 149 AFib RVR. Respiratory rate 14 Pulse ox 97% I reviewed admission labs from ER, last night. Hemoglobin this morning is stable postoperatively 13.0, preoperatively 14.2 Normal platelets Normal white blood cell count D-dimer 1.81 PH this morning is stable, 7.37, pCO2 36, bicarb 21 Lactate is mildly elevated postoperatively this morning 2.0 Carbon dioxide mildly low at 18 Otherwise renal function is already improving, electrolytes are stable Magnesium 1.8 Initial troponin 0.01, pending this morning. No significant chest pain. Echo ordered. Blood cultures are negative to date Urine culture is negative to date ECG reviewed from ER and this morning. This shows AFib, now rate controlled. No ischemic changes. CT abdomen pelvis with contrast, last night in the ED 1. The appendix is distended measuring 18 mm. There is moderate wall thickening and surrounding inflammatory changes noted. No periappendiceal abscess is seen. These findings are consistent with acute appendicitis. CTA from admission 1. No CT evidence of acute pulmonary emboli seen. 2. Aneurysmal enlargement of the ascending aorta is noted measuring 4 cm in maximal short axis diameter. 3. Moderate atherosclerotic calcifications are noted in the coronary arteries. [facility] and Medications and Allergies in the Expanse tabs REVIEW OF SYSTEMS: 12-point ROS completed with patient and negative unless otherwise stated in HPI or below. PHYSICAL EXAM: CODE STATUS: FULL CODE CONSTITUTIONAL: Groggy, insightful, telling her own history. Daughter, Eber available at [phone], is bedside VITAL SIGNS: see record; holding dilt drip now that her HR looks much better controlled; BP a little soft. HEENT: Normocephalic, atraumatic. PERRL, EOMI, conjunctivae pink, no scleral icterus. Ears and nose externally normal. Pharynx DRY NECK: No JVD. No carotid bruit, no thyromegaly, no adenopathy. CHEST: Clear to auscultation bilaterally HEART: No harsh murmurs. S1/S2. ABDOMEN: soft, surgical wounds dry/approximated. EXTREMITIES: No edema. NEURO: Cranial nerves intact. Normal affect. No gross deficits. Speech intelligible. SKIN: No rashes, petechiae, concerning changes PSYCHIATRIC: Euthymic. INVESTIGATIONS: EMR Reviewed DISPOSITION: UNIT currently - can transition to med surg recovery if HR holds without meds DVT: lovenox likely to start tomorrow 07/25 GI: PPI PFSH PFSH Medical History Diverticulosis Glaucoma Hypertension Left ureteral stone Osteopenia Tibia/fibula fracture Surgical History H/O cataract extraction H/O tubal ligation History of tonsillectomy S/P cystoscopy with ureteral stent placement S/P ORIF (open reduction internal fixation) fracture Social History (Updated 07/24/22 @ 12:24 by Alicia Munoz MD) Narrative: lives with , grew up in [place], three adult kids. Luis (daughter) lives in [place] and helps her parents: [phone] Non-prescribed substance use: denies use service: No Meds Home Medications and Allergies Home Medications Medication Instructions Recorded Confirmed Type amlodipine 5 mg tablet 5 mg PO DAILY 07/24/22 07/24/22 History losartan 100 mg tablet 100 mg PO DAILY 07/24/22 07/24/22 History vit C 250 mg-vit E 90 mg-zinc 40 1 tab PO DAILY 07/24/22 07/24/22 History mg-copper 1 [id number] capsule (PreserVision AREDS-2) Allergies Allergy/AdvReac Type Severity Reaction Status Date / Time No Known Drug Allergies Allergy Verified 07/23/22 23:27 Exam Const: Vital Signs, click to edit/add: Vital Signs - 24 hr 07/23/22 21:04 07/23/22 22:10 07/23/22 22:13 Temperature 97.8 F Pulse Rate 135 H 147 H Pulse Rate [Left P ulse Oximeter] 148 H Respiratory Rate 16 Blood Pressure 120/94 H Blood Pressure [Ri ght Upper Arm] 125/91 H Pulse Oximetry 97 97 97 Oxygen Delivery Me thod Room Air Oxygen Flow Rate Fraction of Inspir ed Oxygen 07/23/22 22:16 07/23/22 22:20 07/23/22 22:23 Temperature Pulse Rate 134 H 136 H Pulse Rate [Left P ulse Oximeter] Respiratory Rate Blood Pressure 131/77 144/74 H Blood Pressure [Ri ght Upper Arm] Pulse Oximetry 96 96 100 Oxygen Delivery Me thod Oxygen Flow Rate Fraction of Inspir ed Oxygen 07/23/22 22:31 07/23/22 22:40 07/23/22 22:42 Temperature Pulse Rate 141 H 131 H Pulse Rate [Left P ulse Oximeter] Respiratory Rate Blood Pressure 141/89 H Blood Pressure [Ri ght Upper Arm] Pulse Oximetry 97 99 96 Oxygen Delivery Me thod Oxygen Flow Rate Fraction of Inspir ed Oxygen 07/23/22 22:50 07/23/22 22:35 07/23/22 23:39 Temperature Pulse Rate 102 H 122 H Pulse Rate [Left P ulse Oximeter] Respiratory Rate Blood Pressure Blood Pressure [Ri ght Upper Arm] Pulse Oximetry 96 97 97 Oxygen Delivery Me thod Oxygen Flow Rate Fraction of Inspir ed Oxygen 07/23/22 23:40 07/23/22 23:46 07/23/22 23:50 Temperature Pulse Rate 120 H 135 H Pulse Rate [Left P ulse Oximeter] Respiratory Rate Blood Pressure 147/87 H Blood Pressure [Ri ght Upper Arm] Pulse Oximetry 99 95 98 Oxygen Delivery Me thod Oxygen Flow Rate Fraction of Inspir ed Oxygen 07/24/22 00:00 07/24/22 00:02 07/24/22 00:10 Temperature Pulse Rate 146 H 117 H 124 H Pulse Rate [Left P ulse Oximeter] Respiratory Rate Blood Pressure 155/93 H Blood Pressure [Ri ght Upper Arm] Pulse Oximetry 98 97 97 Oxygen Delivery Me thod Oxygen Flow Rate Fraction of Inspir ed Oxygen 07/24/22 00:20 07/24/22 00:22 07/24/22 00:30 Temperature Pulse Rate 149 H 129 H 139 H Pulse Rate [Left P ulse Oximeter] Respiratory Rate Blood Pressure 153/101 H Blood Pressure [Ri ght Upper Arm] Pulse Oximetry 99 97 97 Oxygen Delivery Me thod Oxygen Flow Rate Fraction of Inspir ed Oxygen 07/24/22 00:50 07/24/22 01:00 07/24/22 01:02 Temperature Pulse Rate 118 H 135 H Pulse Rate [Left P ulse Oximeter] Respiratory Rate Blood Pressure 140/81 H Blood Pressure [Ri ght Upper Arm] Pulse Oximetry 100 97 100 Oxygen Delivery Me thod Oxygen Flow Rate Fraction of Inspir ed Oxygen 07/24/22 01:03 07/24/22 01:30 07/24/22 02:01 Temperature Pulse Rate 89 104 H 114 H Pulse Rate [Left P ulse Oximeter] Respiratory Rate Blood Pressure Blood Pressure [Ri ght Upper Arm] Pulse Oximetry 99 97 97 Oxygen Delivery Me thod Oxygen Flow Rate Fraction of Inspir ed Oxygen 07/24/22 02:25 07/24/22 02:30 07/24/22 02:32 Temperature Pulse Rate 128 H 109 H 108 H Pulse Rate [Left P ulse Oximeter] Respiratory Rate Blood Pressure 128/77 122/72 Blood Pressure [Ri ght Upper Arm] Pulse Oximetry 96 96 97 Oxygen Delivery Me thod Oxygen Flow Rate Fraction of Inspir ed Oxygen 07/24/22 03:00 07/24/22 03:01 07/24/22 03:32 Temperature Pulse Rate 120 H 94 104 H Pulse Rate [Left P ulse Oximeter] Respiratory Rate Blood Pressure 129/82 118/76 Blood Pressure [Ri ght Upper Arm] Pulse Oximetry 96 96 Oxygen Delivery Me thod Oxygen Flow Rate Fraction of Inspir ed Oxygen 07/24/22 04:02 07/24/22 04:32 07/24/22 05:02 Temperature Pulse Rate 98 Pulse Rate [Left P ulse Oximeter] Respiratory Rate Blood Pressure 118/78 118/74 112/76 Blood Pressure [Ri ght Upper Arm] Pulse Oximetry Oxygen Delivery Me thod Oxygen Flow Rate Fraction of Inspir ed Oxygen 07/24/22 05:32 07/24/22 06:02 07/24/22 08:00 Temperature 99.1 F Pulse Rate 89 Pulse Rate [Left P ulse Oximeter] Respiratory Rate 14 Blood Pressure 126/73 129/69 120/80 Blood Pressure [Ri ght Upper Arm] Pulse Oximetry 100 Oxygen Delivery Me thod Blow By Oxygen Flow Rate 15 Fraction of Inspir ed Oxygen 100 07/24/22 08:05 07/24/22 08:30 07/24/22 08:10 Temperature 98.5 F Pulse Rate 88 78 85 Pulse Rate [Left P ulse Oximeter] Respiratory Rate 14 14 14 Blood Pressure 119/76 111/65 101/67 Blood Pressure [Ri ght Upper Arm] Pulse Oximetry 99 97 99 Oxygen Delivery Me thod Blow By Blow By Blow By Oxygen Flow Rate 15 15 15 Fraction of Inspir ed Oxygen 100 40 100 07/24/22 08:15 07/24/22 08:20 07/24/22 08:25 Temperature Pulse Rate 87 89 88 Pulse Rate [Left P ulse Oximeter] Respiratory Rate 14 14 14 Blood Pressure 117/65 112/79 103/69 Blood Pressure [Ri ght Upper Arm] Pulse Oximetry 97 97 97 Oxygen Delivery Me thod Blow By Blow By Blow By Oxygen Flow Rate 15 15 15 Fraction of Inspir ed Oxygen 70 40 40 07/24/22 08:35 Temperature Pulse Rate 76 Pulse Rate [Left P ulse Oximeter] Respiratory Rate 14 Blood Pressure 115/71 Blood Pressure [Ri ght Upper Arm] Pulse Oximetry 97 Oxygen Delivery Me thod Blow By Oxygen Flow Rate 15 Fraction of Inspir ed Oxygen 40 Labs Labs: Short CBC 07/23/22 07/24/22 Range/Units 22:00 11:19 WBC 6.86 (4.50-11.00) K/uL Hgb 14.2 13.0 (12.0-16.0) gm/dL Hct 43.9 (33.0-51.0) % Plt Count 190 (140-440) K/uL BMP 07/23/22 07/24/22 22:00 11:19 Sodium 137 140 Potassium 3.7 4.5 Chloride 107 112 Carbon Dioxide 17 L 18 L BUN 24 23 Creatinine 1.6 H 1.5 Glucose 194 H 171 H Calcium 9.3 8.4 Cardiac Enzymes 07/23/22 Range/Units 22:00 Troponin I 0.01 (0.01-0.04) ng/mL Urine 07/24/22 Range/Units 02:15 Urine Color Yellow (Yellow) Urine Appearance Cloudy A (Clear) Urine pH 5.0 (5.0-8.5) Ur Specific [place] 1.010 (1.000-1.030) Urine Protein 2+ A (Negative) Urine Glucose (UA) Negative (Negative) Assessment and Plan Assessment and plan (1) Acute appendicitis: Problem comment: s/p lap appy; perforated. 07/24/22 on zosyn, blood cultures pending sips and chips; AFIB with RVR noted at presentation. Status: Acute (2) Atrial fibrillation: Problem comment: RVR with presentation of acute appy; 07/23/22. Dilt drip during surgery; continue to monitor now rate controlled. Status: Acute (3) CKD (chronic kidney disease): Problem comment: baseline 1.2-1.3; with presentation of acute illness 1.6, today 1.5, continue support care and IVF Status: Acute (4) Hypertension: Problem comment: well managed on rubén fisher - will likely need a bblocker if remains in AFIB. Status: Acute
[2022-07-24 12:19] LABS: Troponin I* 0.01 ng/mL (0.01-0.04)
[2022-07-24] MEDS: PANTOPRAZOLE SODIUM 40 MG INJ IVP (14:49)
[2022-07-24 16:12] LABS: Lactate* 1.9 mmol/L (0.5-1.9)
[2022-07-24] MEDS: ONDANSETRON 2 MG/ML inj IVP (18:15)
--- NOTE | 2022-07-24 19:37 | PC.NURSE ---
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x3 COVERED WITH GLUE AND INTACT WITH NO DRAINAGE. BOWEL SOUNDS HYPOACTIVE AND PATIENT HAS NOT PASSED GAS. LUNG SOUNDS CLEAR AND ENCOURAGED USE OF INCENTIVE SPIROMETER. ACTIVE ICE PACK TO ABDOMEN. PATIENT ONLY REPORTS PAIN WITH POSITION CHANGES AND HAS DECLINED FURTHER PAIN MEDS AT THIS TIME.
[2022-07-24] MEDS: METOPROLOL TARTRATE 25 MG TABLET PO (20:08)
[2022-07-25] VITALS (11 sets, daily range): BP systolic 112–160; BP diastolic 68–104; PULSE 84–99; RESP 16–22; TEMP 36.6–37.1; O2SAT 91–98
[2022-07-25] MEDS: PIPERACILLIN/TAZOBACTAM 3.375 GM in 0.9 % SODIUM CHLORIDE Mini-bag 100 ML IVPB ×4 (04:00→20:53)
[2022-07-25 06:19] LABS: HCO3 VBG 23 mmol/L (21-28); PCO2 VBG 41 mmHG (40-50); PO2 VBG 32.8 mmHG (25-47); pH VBG 7.364 (7.32-7.43)
[2022-07-25 06:26] LABS: Hematocrit 38.1 % (33.0-51.0); Hemoglobin* 12.2 gm/dL (12.0-16.0); Mean Corpuscular HGB Conc 32 gm/dL (32-36); Mean Corpuscular Hemoglobin 28 pg (26-34); Mean Corpuscular Volume 87 fL (80-100); Platelet Count* 171 K/uL (140-440); Red Blood Count 4.38 m/uL (4.00-5.20); White Blood Count* 9.98 K/uL (4.50-11.00)
[2022-07-25 06:27] LABS: Slide Review Reflex No
[2022-07-25 06:43] LABS: Chloride* 111 mmol/L (96-114); Sodium* 139 mmol/L (135-149)
[2022-07-25 06:44] LABS: Potassium* 4.4 mmol/L (3.6-5.1)
[2022-07-25 06:46] LABS: Alanine Aminotransferase* 15 U/L (4-35); Alkaline Phosphatase* 53 U/L (40-150); Aspartate Amino Transferase* 21 U/L (12-35); Bilirubin Total* 0.9 mg/dL (0.1-1.5); Blood Urea Nitrogen* 32 mg/dL (7-30); Calcium* 8.9 mg/dL (8.4-10.6); Carbon Dioxide* 21 mmol/L (20-32); Creatinine* 1.7 mg/dL (0.5-1.5); Est. Creatinine Clearance* 23.06; Estimated Glomerular Filt Rate 29 ml/min; Glucose* 117 mg/dL (60-115); Magnesium* 1.9 mg/dL (1.5-2.6); Total Protein* 5.9 g/dL (6.0-8.3)
[2022-07-25] MEDS: OXYCODONE 5 MG TABLET PO (08:50)
[2022-07-25] MEDS: METOPROLOL TARTRATE 25 MG TABLET 12.5 MG PO ×2 (08:50→20:54)
[2022-07-25] MEDS: 0.9 % SODIUM CHLORIDE 500 ML 500 ML 250 ML IV (09:59)
--- NOTE | 2022-07-25 12:09 | P.IMPN_ITS ---
Progress Note: A&P Assessment and plan (1) Acute appendicitis: Problem details: s/p lap appy; perforated. 07/24/22 on zosyn, blood cultures remain negative clear diet; AFIB RVR at presentation; AFIB rate controlled now; echo shows some LA enlargement. more chronic? would recommend outpatient cardiac recording and outpatient cardiology f/u Status: Acute (2) Atrial fibrillation: Problem details: RVR with presentation of acute appy; 07/23/22. Dilt drip during surgery; continue to monitor now rate controlled. lovenox starting today; will need OAC at discharge if afib continues. Status: Acute (3) CKD (chronic kidney disease): Problem details: baseline 1.2-1.3; 3rd spacing; fluid bolus; will likely diuresis starting in the next 1-2 days; lasix challenge if needed Status: Acute (4) Hypertension: Problem details: well managed on norvasc, cozaar - will likely need a bblocker if remains in AFIB. Status: Acute Subjective Date Seen: 07/25/22 Interval history: Hospital Day # 2 Post Op Day #1 Laparoscopic appendectomy 07/24/22 Perforated appendix with evidence of purulent peritonitis intraoperatively. Estimated blood loss (mL): 2 Afebrile, T-max 98.5 Blood pressure 130/80 Pulse rate 91 Respiratory rate 22 Pulse ox 95% on room air CBC unremarkable this morning. Hemoglobin is stable 12.2 PH normal this morning Creatinine has bumped a little to 1.7 with a bump in her BUN, lactate elevation has resolved UA showed a mixed mariam, contaminated Blood cultures negative to date Echo yesterday shows mildly increased wall thickness, low normal global systolic function with an EF of 55% Mildly enlarged atrium Mild valvular abnormalities ECG reviewed from ER and this morning.? This shows AFib, now rate controlled.? No ischemic changes. CT abdomen pelvis with contrast, from presentation in ED 1. The appendix is distended measuring 18 mm. There is moderate wall thickening and surrounding inflammatory changes noted. No periappendiceal abscess is seen. These findings are consistent with acute appendicitis. CTA from admission 1. No CT evidence of acute pulmonary emboli seen. 2. Aneurysmal enlargement of the ascending aorta is noted measuring 4 cm in maximal short axis diameter. 3. Moderate atherosclerotic calcifications are noted in the coronary arteries. I updated the [facility] histories and Medications and Allergies in the Expanse tabs REVIEW OF SYSTEMS: 12-point ROS completed with patient and negative unless otherwise stated in HPI or below. ? PHYSICAL EXAM: CODE STATUS:? FULL CODE CONSTITUTIONAL:? much brighter;? Daughter, Eber available at [phone], is bedside VITAL SIGNS: see record; holding dilt drip now that her HR looks much better? controlled; BP a little soft. HEENT: Normocephalic, atraumatic. PERRL, EOMI, conjunctivae pink, no scleral icterus. Ears and nose externally normal. Pharynx DRY NECK: No JVD. No carotid bruit, no thyromegaly, no adenopathy. CHEST:? Clear to auscultation bilaterally HEART: No harsh murmurs. S1/S2. ABDOMEN: soft, surgical wounds dry/approximated. EXTREMITIES:? No edema. NEURO: Cranial nerves intact.? Normal affect. No gross deficits. Speech intelligible. SKIN:? No rashes, petechiae, concerning changes PSYCHIATRIC: Euthymic. INVESTIGATIONS: EMR Reviewed ? DISPOSITION: inpatient recovery and will likely discharge home or SNF rehab; will see how bowel function, HR recover DVT: ? lovenox GI: PPI Exam Const: Vital Signs, click to edit/add: Vital Signs - 24 hr 07/24/22 15:00 07/24/22 15:00 07/24/22 13:00 Temperature Pulse Rate 94 Pulse Rate [Left P ulse Oximeter] 88 78 Respiratory Rate 16 16 Blood Pressure [Ri ght Arm] 113/68 Pulse Oximetry 96 Oxygen Delivery Me thod Room Air 07/24/22 14:00 07/24/22 15:00 07/24/22 20:06 Temperature 98.5 F 98.8 F 98.5 F Pulse Rate Pulse Rate [Left P ulse Oximeter] 86 86 92 Respiratory Rate 16 16 Blood Pressure [Ri ght Arm] 111/64 107/68 124/79 Pulse Oximetry 99 99 93 Oxygen Delivery Me thod Room Air Room Air Room Air 07/24/22 19:00 07/25/22 00:00 07/25/22 04:00 Temperature 98.5 F 98.6 F Pulse Rate Pulse Rate [Left P ulse Oximeter] 92 84 92 Respiratory Rate 16 18 16 Blood Pressure [Ri ght Arm] 112/68 122/89 Pulse Oximetry 94 93 Oxygen Delivery Me thod Room Air Room Air 07/25/22 03:00 07/25/22 07:00 07/25/22 07:00 Temperature Pulse Rate 94 Pulse Rate [Left P ulse Oximeter] 93 92 Respiratory Rate 22 Blood Pressure [Ri ght Arm] Pulse Oximetry Oxygen Delivery Me thod 07/25/22 08:00 Temperature 98.8 F Pulse Rate Pulse Rate [Left P ulse Oximeter] 91 Respiratory Rate 22 Blood Pressure [Ri ght Arm] 130/80 Pulse Oximetry 95 Oxygen Delivery Me thod Room Air Labs Labs: Laboratory Results - last 24 hr 07/24/22 07/24/22 07/25/22 11:19 16:08 06:08 WBC 9.98 RBC 4.38 Hgb 12.2 Hct 38.1 MCV 87 MCH 28 MCHC 32 Plt Count 171 VBG pH VBG pCO2 VBG pO2 VBG HCO3 Sodium Potassium Chloride Carbon Dioxide BUN Creatinine Estimated Creat Clear Estimated GFR Glucose Lactate 1.9 Calcium Magnesium Total Bilirubin AST ALT Alkaline Phosphatase Troponin I 0.01 Total Protein Albumin 07/25/22 07/25/22 06:08 06:08 WBC RBC Hgb Hct MCV MCH MCHC Plt Count VBG pH 7.364 VBG pCO2 41 VBG pO2 32.8 VBG HCO3 23 Sodium 139 Potassium 4.4 Chloride 111 Carbon Dioxide 21 BUN 32 H Creatinine 1.7 H Estimated Creat Clear 23.06 Estimated GFR 29 Glucose 117 H Lactate Calcium 8.9 Magnesium 1.9 Total Bilirubin 0.9 AST 21 ALT 15 Alkaline Phosphatase 53 Troponin I Total Protein 5.9 L Albumin 3.0 L
--- NOTE | 2022-07-25 14:58 | P.GSPN_ITS ---
Subjective Subjective Date Seen: 07/25/22 Interval history: Patient is doing better this morning. She says that the pain on her right side is significantly improved, but is now on the left side with the incisions are. She has been able to get up and use the restroom. Denies any fevers or chills. Is not feeling hungry. Denies any nausea. Has not yet passed gas. Exam Narrative: Exam Narrative: General: Alert and oriented, no acute distress. Lying comfortably in bed. Abdomen: Soft, nondistended. Incisions clean/dry/intact. Patient is tender over the incision sites. Right side of abdomen with deep palpation, no guarding or rebound. Const: Vital Signs, click to edit/add: Vital Signs - 24 hr 07/24/22 15:00 07/24/22 15:00 07/24/22 15:00 Temperature 98.8 F Pulse Rate 94 Pulse Rate [Left P ulse Oximeter] 88 86 Respiratory Rate 16 16 Blood Pressure [Ri ght Arm] 107/68 Pulse Oximetry 99 Oxygen Delivery Me thod Room Air 07/24/22 20:06 07/24/22 19:00 07/25/22 00:00 Temperature 98.5 F 98.5 F Pulse Rate Pulse Rate [Left P ulse Oximeter] 92 92 84 Respiratory Rate 16 18 Blood Pressure [Ri ght Arm] 124/79 112/68 Pulse Oximetry 93 94 Oxygen Delivery Me thod Room Air Room Air 07/25/22 04:00 07/25/22 03:00 07/25/22 07:00 Temperature 98.6 F Pulse Rate 94 Pulse Rate [Left P ulse Oximeter] 92 93 Respiratory Rate 16 Blood Pressure [Ri ght Arm] 122/89 Pulse Oximetry 93 Oxygen Delivery Me thod Room Air 07/25/22 07:00 07/25/22 08:00 07/25/22 11:00 Temperature 98.8 F Pulse Rate Pulse Rate [Left P ulse Oximeter] 92 91 91 Respiratory Rate 22 Blood Pressure [Ri ght Arm] 130/80 Pulse Oximetry 95 Oxygen Delivery Me thod Room Air 07/25/22 12:00 Temperature 98.8 F Pulse Rate Pulse Rate [Left P ulse Oximeter] 99 Respiratory Rate 18 Blood Pressure [Ri ght Arm] 140/90 H Pulse Oximetry 91 Oxygen Delivery Me thod Room Air Progress Note: A&P Assessment and plan (1) Acute appendicitis: Status: Acute Assessment and Plan: Patient is postop day 1 laparoscopic appendectomy for perforated appendicitis. Evidence of purulent peritonitis intraoperatively. Patient has been maintained on IV Zosyn. Vital signs stable, continues in a rate controlled atrial fibrillation. Afebrile overnight and throughout the day. No evidence of leukocytosis on lab. Would recommend continuing with IV antibiotics at this time. Awaiting return of bowel function, but patient is okay to start some clear liquids. The hospitalist does continue to follow, appreciate their furniture removalist's assistant
[2022-07-25] MEDS: LACTATED RINGERS 1000 ML 1,000 ML 100 ML IV (17:37)
--- NOTE | 2022-07-25 20:13 | PC.NURSE ---
Nursing Care Hours: [id number] Pt this shift calm and cooperative. Pain 3/10 managed per eMAR. Walked the solorio x2 with walker and gait belt. Advanced to clear liquid diet, pt reported drinking the apple juice to soon and felt nauseated. Refused medication but cool washcloth was effective. Frequent visitors at bedside.
[2022-07-25] MEDS: ENOXAPARIN 30 MG/0.3ML INJ SUBCUT (20:54)
[2022-07-26] VITALS (9 sets, daily range): BP systolic 135–198; BP diastolic 85–135; PULSE 86–113; RESP 20–24; TEMP 36.6–37.2; O2SAT 94–98
[2022-07-26] MEDS: PIPERACILLIN/TAZOBACTAM 3.375 GM in 0.9 % SODIUM CHLORIDE Mini-bag 100 ML IVPB ×4 (02:33→20:02)
[2022-07-26] MEDS: LACTATED RINGERS 1000 ML 1,000 ML 100 ML IV ×2 (05:34→20:01)
--- NOTE | 2022-07-26 06:02 | PC.NURSE ---
[id number]: Patient pleasant and cooperative. SBA w/walker. Denies pain and pain medications. Patient does wince when stand/sitting but quickly recovers. Lap sites glued and open to air. Denies passing gas. Tolerating clears with a mild amout of nausea. Declined nausea medication. Continent/incontinent of urine. Afebrile.
[2022-07-26 07:02] LABS: Hematocrit 37.6 % (33.0-51.0); Mean Corpuscular HGB Conc 32 gm/dL (32-36); Mean Corpuscular Hemoglobin 28 pg (26-34); Mean Corpuscular Volume 87 fL (80-100); Platelet Count* 202 K/uL (140-440); Red Blood Count 4.33 m/uL (4.00-5.20); White Blood Count* 11.91 K/uL (4.50-11.00)
[2022-07-26 07:23] LABS: Albumin* 3.1 g/dL (3.3-5.0); Chloride* 110 mmol/L (96-114)
[2022-07-26 07:24] LABS: Potassium* 4.1 mmol/L (3.6-5.1); Sodium* 139 mmol/L (135-149)
[2022-07-26 07:26] LABS: Alanine Aminotransferase* 17 U/L (4-35); Alkaline Phosphatase* 120 U/L (40-150); Aspartate Amino Transferase* 24 U/L (12-35); Bilirubin Total* 0.9 mg/dL (0.1-1.5); Blood Urea Nitrogen* 34 mg/dL (7-30); Carbon Dioxide* 22 mmol/L (20-32); Creatinine* 1.7 mg/dL (0.5-1.5); Est. Creatinine Clearance* 23.06; Estimated Glomerular Filt Rate 29 ml/min; Glucose* 153 mg/dL (60-115)
[2022-07-26 07:27] LABS: Calcium* 8.7 mg/dL (8.4-10.6)
[2022-07-26 07:32] LABS: Slide Review Reflex No
[2022-07-26] MEDS: LOSARTAN POTASSIUM 50 MG TABLET 100 MG PO (08:45)
[2022-07-26] MEDS: METOPROLOL TARTRATE 25 MG TABLET 12.5 MG PO (08:45)
--- NOTE | 2022-07-26 11:24 | PM.GSPN ---
Subjective Subjective Date Seen: 07/26/22 Interval history: Patient is doing ?okay? this morning. She is a little discouraged because she still feels very fatigued following surgery and needs assistance with walking and daily activities. She continues to have abdominal pain, which he reports as being stable compared to yesterday. Not much of an appetite. Denies any nausea. Is not yet passing gas. No fevers overnight. Exam Narrative: Exam Narrative: General: Alert and oriented, no acute distress. Nontoxic in appearance. Respiratory: Maintained on room air, equal breath rise bilaterally CV: Irregularly irregular rhythm, regular rate Abdomen: Incisions clean/dry/intact. Patient does have some increase tenderness during my exam in the right lower quadrant with some mild guarding but no rebound. Abdomen is soft with mild distention. Const: Vital Signs, click to edit/add: Vital Signs - 24 hr 07/25/22 12:00 07/25/22 15:00 07/25/22 15:00 Temperature 98.8 F Pulse Rate 94 Pulse Rate [Left P ulse Oximeter] 99 99 Respiratory Rate 18 20 Blood Pressure [Ri ght Arm] 140/90 H Pulse Oximetry 91 Oxygen Delivery Me thod Room Air 07/25/22 16:00 07/25/22 20:00 07/26/22 00:00 Temperature 97.8 F 98.1 F Pulse Rate Pulse Rate [Left P ulse Oximeter] 98 92 93 Respiratory Rate 20 20 20 Blood Pressure [Ri ght Arm] 145/88 H 160/104 H 136/91 H Pulse Oximetry 95 98 97 Oxygen Delivery Me thod Room Air Room Air Room Air 07/25/22 23:00 07/26/22 03:04 07/26/22 08:00 Temperature 97.9 F 98.8 F Pulse Rate 90 Pulse Rate [Left P ulse Oximeter] 86 88 Respiratory Rate 20 22 Blood Pressure [Ri ght Arm] 156/92 H 184/107 H Pulse Oximetry 95 94 Oxygen Delivery Me thod Room Air Room Air 07/26/22 07:00 07/26/22 07:00 Temperature Pulse Rate 97 Pulse Rate [Left P ulse Oximeter] 88 Respiratory Rate 22 Blood Pressure [Ri ght Arm] Pulse Oximetry Oxygen Delivery Me thod Labs/Imaging Labs Labs: Increasing WBC (11 0.9). Hemoglobin is stable at 12. BMP significant for stable the elevated creatinine of 1.7 and elevated BUN of 34. Imaging Imaging: No new imaging Progress Note: A&P Assessment and plan (1) Acute appendicitis: Status: Acute Assessment and Plan: Patient is postop day 2 laparoscopic appendectomy for perforated appendicitis. Evidence of purulent peritonitis intraoperatively. Patient has remained afebrile, but labs are significant for an increasing WBC with mild leukocytosis this morning. She does have some increase tenderness in the right lower quadrant compared to yesterday on my exam. Patient is at high risk for developing a postop abscess, given the amount of intra-abdominal contamination. Will continue with IV Zosyn and trend fever curve. No need for imaging at this time. Awaiting return of bowel function before starting a diet. Most likely has a postoperative ileus. Her creatinine and BUN are elevated. She is likely continuing to 3rd space her fluids, would anticipate mobilization of these fluids by postop day 3. -NPO, okay for sips and ice chips, IV fluids -IV Zosyn -daily labs -encourage ambulation. PT/OT for consultation -SCDs and Jon for DVT prophylaxis Hospitalist continues to follow and help with management. Appreciate their assistance.
--- NOTE | 2022-07-26 15:06 | P.IMPN_ITS ---
Progress Note: A&P Assessment and plan (1) Acute appendicitis: Problem details: continue abx as one blood culture is positive. clinically patient is much improved. as bowel function returns; we will advance diet. I've set up home health for PT/OT (to include home safety eval) for next week. RN to evaluate AFIB rate control and any side effects of new meds (metoprolol, eliquis). Status: Acute (2) Atrial fibrillation: Problem details: RVR with presentation of acute appy; 07/23/22. Dilt drip during surgery; continue to monitor now rate controlled. Lovenox is being transitioned to oral eliquis (renally dosed) as afib persists. May want to consider outpatient cards with/without holter at discharge. I increased metoprolol to 25mg today. Status: Acute (3) Hypertension: Problem details: added back losartan and started/uptitrated metoprolol. Status: Acute (4) CKD (chronic kidney disease): Problem details: baseline 1.2-1.3; 3rd spacing; fluid bolus; will likely diuresis starting in the next 1-2 days; lasix challenge if needed Status: Acute Subjective Date Seen: 07/26/22 Interval history: Hospital Day # 3 Post Op Day #2 Laparoscopic appendectomy 07/24/22 Perforated appendix with evidence of purulent peritonitis intraoperatively. Estimated blood loss (mL): 2 pos blood culture x 1 at >48 hours; gram neg shaji Blood pressure 147/111, pulse 94, respirations 22. On room air. CBC mildly up trending 9.9-11.9 Normal pH and venous blood gas today. Creatinine remains mildly elevated at 1.7 despite fluids. This is likely due to 3rd spacing. Her weight is up but based on discordant weights; will have orthostatics/daily weights done. Elevated lactate has resolved Gram-negative rods in 1 bottle from admission, 07/24, early a.m. Echo during this admission shows mildly increased wall thickness, low normal global systolic function with an EF of 55% Mildly enlarged atrium Mild valvular abnormalities ECG reviewed from ER and this morning.? This shows AFib, now rate controlled.? No ischemic changes. CT abdomen pelvis with contrast, from presentation in ED 1. The appendix is distended measuring 18 mm. There is moderate wall thickening and surrounding inflammatory changes noted. No periappendiceal abscess is seen. These findings are consistent with acute appendicitis. CTA from admission 1. No CT evidence of acute pulmonary emboli seen. 2. Aneurysmal enlargement of the ascending aorta is noted measuring 4 cm in maximal short axis diameter. 3. Moderate atherosclerotic calcifications are noted in the coronary arteries. I updated the [facility] histories and Medications and Allergies in the Expanse tabs REVIEW OF SYSTEMS: 12-point ROS completed with patient and negative unless otherwise stated in HPI or below. ? PHYSICAL EXAM: CODE STATUS:? FULL CODE CONSTITUTIONAL:? much brighter;? Daughter, Eber available at [phone], is bedside VITAL SIGNS: see record; holding dilt drip now that her HR looks much better? controlled; BP a little soft. HEENT: Normocephalic, atraumatic. PERRL, EOMI, conjunctivae pink, no scleral icterus. Ears and nose externally normal. Pharynx DRY NECK: No JVD. No carotid bruit, no thyromegaly, no adenopathy. CHEST:? Clear to auscultation bilaterally HEART: No harsh murmurs. S1/S2. ABDOMEN: soft, surgical wounds dry/approximated. EXTREMITIES:? No edema. NEURO: Cranial nerves intact.? Normal affect. No gross deficits. Speech intelligible. SKIN:? No rashes, petechiae, concerning changes PSYCHIATRIC: Euthymic. INVESTIGATIONS: EMR Reviewed ? DISPOSITION: inpatient recovery and will likely discharge home or SNF rehab; will see how bowel function, HR recover DVT: ? lovenox GI: PPI Exam Const: Vital Signs, click to edit/add: Vital Signs - 24 hr 07/25/22 16:00 07/25/22 20:00 07/26/22 00:00 Temperature 97.8 F 98.1 F Pulse Rate Pulse Rate [Left P ulse Oximeter] 98 92 93 Respiratory Rate 20 20 20 Blood Pressure [Ri ght Arm] 145/88 H 160/104 H 136/91 H Pulse Oximetry 95 98 97 Oxygen Delivery Me thod Room Air Room Air Room Air 07/25/22 23:00 07/26/22 03:04 07/26/22 08:00 Temperature 97.9 F 98.8 F Pulse Rate 90 Pulse Rate [Left P ulse Oximeter] 86 88 Respiratory Rate 20 22 Blood Pressure [Ri ght Arm] 156/92 H 184/107 H Pulse Oximetry 95 94 Oxygen Delivery Me thod Room Air Room Air 07/26/22 07:00 07/26/22 07:00 07/26/22 11:00 Temperature 98.8 F Pulse Rate 97 Pulse Rate [Left P ulse Oximeter] 88 94 Respiratory Rate 22 22 Blood Pressure [Ri ght Arm] 147/111 H Pulse Oximetry 98 Oxygen Delivery Me thod Room Air Labs Labs: Laboratory Results - last 24 hr 07/26/22 07/26/22 06:20 06:20 WBC 11.91 H RBC 4.33 Hgb 12.0 Hct 37.6 MCV 87 MCH 28 MCHC 32 Plt Count 202 Sodium 139 Potassium 4.1 Chloride 110 Carbon Dioxide 22 BUN 34 H Creatinine 1.7 H Estimated Creat Clear 23.06 Estimated GFR 29 Glucose 153 H Calcium 8.7 Total Bilirubin 0.9 AST 24 ALT 17 Alkaline Phosphatase 120 Total Protein 6.0 Albumin 3.1 L
--- NOTE | 2022-07-26 16:48 | PC.SOCIAL ---
Social work note: Late entry: Met with dtr and pt 07/25/22. Dtr Luis shared that she was unhappy she was not called by the emergency room to be informed of pt's admission. Pt shared that her was with her in the emergency room and was supposed to let the family know of her admission but did not and the family found out when they called the house this morning looking for pt and answered the phone. Pt states she did not ask for staff to contact her family as was present. Luis Piper was not the emergency contact on the face sheet when pt was admitted. At pt request, face sheet was updated to have maggi Smith as secondary contact. ryleer is aware and pleased with this change.
--- NOTE | 2022-07-26 16:53 | PC.SOCIAL ---
Discharge plan: Met with pt and dtr in [place]. in room regarding d/c plan. Pt is aware and agrees with MD order for home RN, PT and OT. Provided pt with resource list of home care agencies and ratings. [facility] is the only agency with availability for a new pt next week that serves pt's home area. Pt is pleased with having [facility] provide this service. Called [facility] [phone] and faxed referral to [phone]. Called to confirm receipt and provided home care with charge nurse number to call tomorrow if there are any questions. RN to fax discharge orders when completed to the same home care fax number. Pt is requesting a walker for home. Pt is aware and able to issue pt a walker if needed and ordered by MD at discharge. Pt is pleased with discharge arrangements made and is aware of how to contact social media community manager with questions as needed.
[2022-07-26 17:19] LABS: NT Pro B Type NatriureticPept* 4370 PG/mL (0-450)
--- NOTE | 2022-07-26 18:39 | PC.NURSE ---
End of Shift: Patient pleasant and cooperative. Patient hypertensive, but vitally stable, lungs clear, BS WNL, IV running LR at 100. Patient SBA with walker. Patient went on two walks with technical report writer. Patient used toilet but is also incontinent. Patient denies pain, nothing given for pain. Weight and orthostatic BP's collected. Patient tolerating clear liquids, patient had coffee for breakfast, nothing for lunch, and had 75% of dinner. Lap sites x3 glued, open to air, no drainage and intact.
[2022-07-26] MEDS: 0.9 % SODIUM CHLORIDE 250 ml IV (20:02)
[2022-07-26] MEDS: METOPROLOL TARTRATE 25 MG TABLET PO (21:18)
[2022-07-26] MEDS: APIXABAN 5 MG TABLET 2.5 MG PO (21:19)
[2022-07-27] VITALS (7 sets, daily range): BP systolic 126–171; BP diastolic 78–109; PULSE 77–109; RESP 18–24; TEMP 36.7–37.3; O2SAT 94–97
[2022-07-27] MEDS: PIPERACILLIN/TAZOBACTAM 3.375 GM in 0.9 % SODIUM CHLORIDE Mini-bag 100 ML IVPB ×4 (02:34→20:21)
--- NOTE | 2022-07-27 08:21 | PC.NURSE ---
END OF SHIFT NOTE: PT PLEASANT AND COOPERATIVE. SHIFT WAS UNEVENTFUL. PT AMBULATES WITH WALKER, GB, SBA. DENIES PAIN. VSS ON RA; AFEBRILE.
[2022-07-27 08:34] LABS: Ionized Calcium* 1.18 mmol/L (1.11-1.30)
[2022-07-27 08:36] LABS: Hematocrit 38.9 % (33.0-51.0); Hemoglobin* 12.5 gm/dL (12.0-16.0); Mean Corpuscular HGB Conc 32 gm/dL (32-36); Mean Corpuscular Hemoglobin 28 pg (26-34); Mean Corpuscular Volume 86 fL (80-100); Platelet Count* 237 K/uL (140-440); White Blood Count* 11.57 K/uL (4.50-11.00)
[2022-07-27 08:37] LABS: Slide Review Reflex No
[2022-07-27] MEDS: APIXABAN 5 MG TABLET 2.5 MG PO ×2 (09:26→21:07)
[2022-07-27] MEDS: METOPROLOL TARTRATE 25 MG TABLET PO ×2 (09:26→21:07)
[2022-07-27] MEDS: LOSARTAN POTASSIUM 50 MG TABLET 100 MG PO (09:26)
[2022-07-27 09:28] LABS: Albumin* 3.2 g/dL (3.3-5.0); Chloride* 109 mmol/L (96-114); Potassium* 3.9 mmol/L (3.6-5.1); Sodium* 140 mmol/L (135-149)
[2022-07-27 09:30] LABS: Bilirubin Total* 1.1 mg/dL (0.1-1.5); Carbon Dioxide* 23 mmol/L (20-32); Creatinine* 1.7 mg/dL (0.5-1.5); Est. Creatinine Clearance* 23.06; Estimated Glomerular Filt Rate 29 ml/min
[2022-07-27 09:31] LABS: Alanine Aminotransferase* 18 U/L (4-35); Alkaline Phosphatase* 78 U/L (40-150); Aspartate Amino Transferase* 28 U/L (12-35); Blood Urea Nitrogen* 30 mg/dL (7-30); Calcium* 8.8 mg/dL (8.4-10.6); Glucose* 82 mg/dL (60-115); Magnesium* 2.1 mg/dL (1.5-2.6); Total Protein* 6.2 g/dL (6.0-8.3)
[2022-07-27 09:39] LABS: NT Pro B Type NatriureticPept* 6580 PG/mL (0-450)
[2022-07-27] MEDS: LACTATED RINGERS 1000 ML 1,000 ML 100 ML IV (09:49)
--- NOTE | 2022-07-27 10:03 | PM.GSPN ---
Subjective Subjective Date Seen: 07/27/22 Interval history: Patient is feeling better this morning. She had a bowel movement and has been passing gas. She has been tolerating clears without nausea. Still does not have much of an appetite but is willing to try more regular food. Still feels fatigued from surgery, but did walk the halls with physical therapy yesterday. She has been able to ambulate to the bathroom on her own. Exam Narrative: Exam Narrative: General: Alert and oriented, no acute distress. Lying comfortably in bed. Abdomen: Soft, nontender nondistended. No guarding or rebound. Const: Vital Signs, click to edit/add: Vital Signs - 24 hr 07/26/22 11:00 07/26/22 15:00 07/26/22 15:00 Temperature 98.8 F 98.9 F Pulse Rate Pulse Rate [Apical ] Pulse Rate [Left P ulse Oximeter] 94 99 99 Pulse Rate [orthos tatic lying] Pulse Rate [orthos tatic sitting] Pulse Rate [orthos tatic standing] Respiratory Rate 22 24 24 Blood Pressure [Ri ght Arm] 147/111 H 162/97 H Blood Pressure [or thostatic lying] Blood Pressure [or thostatic sitting] Blood Pressure [or thostatic standing ] Pulse Oximetry 98 94 Oxygen Delivery Me thod Room Air Room Air 07/26/22 18:26 07/26/22 15:00 07/26/22 19:50 Temperature 98.9 F Pulse Rate 91 Pulse Rate [Apical ] 94 Pulse Rate [Left P ulse Oximeter] 96 Pulse Rate [orthos tatic lying] 101 H Pulse Rate [orthos tatic sitting] 109 H Pulse Rate [orthos tatic standing] 113 H Respiratory Rate 20 Blood Pressure [Ri ght Arm] 164/106 H Blood Pressure [or thostatic lying] 198/129 H Blood Pressure [or thostatic sitting] 176/135 H Blood Pressure [or thostatic standing ] 148/116 H Pulse Oximetry 95 Oxygen Delivery Me thod Room Air 07/26/22 23:00 07/26/22 23:00 07/26/22 23:00 Temperature 98.5 F Pulse Rate 87 Pulse Rate [Apical ] 89 89 Pulse Rate [Left P ulse Oximeter] 88 88 Pulse Rate [orthos tatic lying] Pulse Rate [orthos tatic sitting] Pulse Rate [orthos tatic standing] Respiratory Rate 22 22 Blood Pressure [Ri ght Arm] 135/85 Blood Pressure [or thostatic lying] Blood Pressure [or thostatic sitting] Blood Pressure [or thostatic standing ] Pulse Oximetry 95 Oxygen Delivery Me thod Room Air 07/27/22 03:00 07/27/22 06:00 07/27/22 07:00 Temperature 98.3 F Pulse Rate Pulse Rate [Apical ] 87 Pulse Rate [Left P ulse Oximeter] 77 91 Pulse Rate [orthos tatic lying] 80 Pulse Rate [orthos tatic sitting] 99 Pulse Rate [orthos tatic standing] 91 Respiratory Rate 22 24 Blood Pressure [Ri ght Arm] 145/91 H Blood Pressure [or thostatic lying] 149/84 H Blood Pressure [or thostatic sitting] 159/109 H Blood Pressure [or thostatic standing ] 155/104 H Pulse Oximetry 97 Oxygen Delivery Me thod Room Air 07/27/22 07:00 Temperature 98.7 F Pulse Rate Pulse Rate [Apical ] Pulse Rate [Left P ulse Oximeter] 91 Pulse Rate [orthos tatic lying] Pulse Rate [orthos tatic sitting] Pulse Rate [orthos tatic standing] Respiratory Rate 24 Blood Pressure [Ri ght Arm] 155/104 H Blood Pressure [or thostatic lying] Blood Pressure [or thostatic sitting] Blood Pressure [or thostatic standing ] Pulse Oximetry 95 Oxygen Delivery Me thod Room Air Labs/Imaging Labs Labs: WBC stable at 11.5 Progress Note: A&P Assessment and plan (1) Acute appendicitis: Problem details: continue abx as one blood culture is positive. clinically patient is much improved. as bowel function returns; we will advance diet. I've set up home health for PT/OT (to include home safety eval) for next week. RN to evaluate AFIB rate control and any side effects of new meds (metoprolol, eliquis). Status: Acute Assessment and Plan: Patient is postop day 3 laparoscopic appendectomy for perforated appendicitis. Evidence of purulent peritonitis intraoperatively. Patient with return of bowel function. Her exam has improved for me this morning compared to yesterday. Remains afebrile with leukocytosis stable. No acute concerns. Anticipate discharge possibly tomorrow. -regular diet -continue with IV Zosyn today, plan to transition to orals at the time of discharge to complete a 7 day course -daily labs -encourage ambulation. PT/OT for consultation -SCDs and Deanx for DVT prophylaxis Hospitalist continues to follow and help with management. Appreciate their assistance.
--- NOTE | 2022-07-27 10:06 | P.IMPN_ITS ---
Progress Note: A&P Assessment and plan (1) Acute appendicitis: Problem details: continue abx as one blood culture is positive. clinically patient is much improved. as bowel function returns; we will advance diet. I've set up home health for PT/OT (to include home safety eval) for next week. Status: Acute Assessment and Plan: 07/27; advance diet as tolerated; stop IVF (2) Hypertension: Problem details: continue losartan/metoprolol Status: Acute (3) Atrial fibrillation: Problem details: RVR with presentation of acute appy; 07/23/22. Dilt drip during surgery; continue to monitor now rate controlled. Lovenox is being transitioned to oral eliquis (renally dosed) as afib persists. May want to consider outpatient cards with/without holter at discharge. Status: Acute Assessment and Plan: 07/27; RVR has resolved, continue eliquis; metoprolol (4) CKD (chronic kidney disease): Problem details: baseline 1.2-1.3; 3rd spacing; fluid bolus; will likely diuresis starting in the next 1-2 days; lasix challenge if needed Status: Acute Assessment and Plan: 07/27: Cr 1.7; will give lasix X1; BNP trending up; repeat BMP tomorrow Time Spent With Patient Total time spent: 30 minutes Subjective Date Seen: 07/27/22 Interval history: patient new to me she denies chest pain minimal abdominal pain she had a bowel movement Discussed with Dr. Sadler ok to advance diet no nausea or vomiting Exam Narrative: Exam Narrative: Gen: elderly female in no distress HEENT: NCAT EOMI MMM CV: IRIR s1 s2 Lungs: CTAB Abd: soft, nt, nd surgical incision c/d/i neuro: alert, oriented nonfocal screening exam Const: Vital Signs, click to edit/add: Vital Signs - 24 hr 07/26/22 11:00 07/26/22 15:00 07/26/22 15:00 Temperature 98.8 F 98.9 F Pulse Rate Pulse Rate [Apical ] Pulse Rate [Left P ulse Oximeter] 94 99 99 Pulse Rate [orthos tatic lying] Pulse Rate [orthos tatic sitting] Pulse Rate [orthos tatic standing] Respiratory Rate 22 24 24 Blood Pressure [Ri ght Arm] 147/111 H 162/97 H Blood Pressure [or thostatic lying] Blood Pressure [or thostatic sitting] Blood Pressure [or thostatic standing ] Pulse Oximetry 98 94 Oxygen Delivery N[place] thod Room Air Room Air 07/26/22 18:26 07/26/22 15:00 07/26/22 19:50 Temperature 98.9 F Pulse Rate 91 Pulse Rate [Apical ] 94 Pulse Rate [Left P ulse Oximeter] 96 Pulse Rate [orthos tatic lying] 101 H Pulse Rate [orthos tatic sitting] 109 H Pulse Rate [orthos tatic standing] 113 H Respiratory Rate 20 Blood Pressure [Ri ght Arm] 164/106 H Blood Pressure [or thostatic lying] 198/129 H Blood Pressure [or thostatic sitting] 176/135 H Blood Pressure [or thostatic standing ] 148/116 H Pulse Oximetry [facility] 07/26/22 23:00 07/26/22 23:00 07/26/22 23:00 Temperature 98.5 F Pulse Rate 87 Pulse Rate [Apical ] 89 89 Pulse Rate [Left P ulse Oximeter] 88 88 Pulse Rate [orthos tatic lying] Pulse Rate [orthos tatic sitting] Pulse Rate [orthos tatic standing] Respiratory Rate 22 22 Blood Pressure [Ri ght Arm] 135/85 Blood Pressure [or thostatic lying] Blood Pressure [or thostatic sitting] Blood Pressure [or thostatic standing ] Pulse Oximetry 95 [facility] 07/27/22 03:00 07/27/22 06:00 07/27/22 07:00 Temperature 98.3 F Pulse Rate Pulse Rate [Apical ] 87 Pulse Rate [Left P ulse Oximeter] 77 91 Pulse Rate [orthos tatic lying] 80 Pulse Rate [orthos tatic sitting] 99 Pulse Rate [orthos tatic standing] 91 Respiratory Rate 22 24 Blood Pressure [Ri ght Arm] 145/91 H Blood Pressure [or thostatic lying] 149/84 H Blood Pressure [or thostatic sitting] 159/109 H Blood Pressure [or thostatic standing ] 155/104 H Pulse Oximetry 97 [facility] 07/27/22 07:00 Temperature 98.7 F Pulse Rate Pulse Rate [Apical ] Pulse Rate [Left P ulse Oximeter] 91 Pulse Rate [orthos tatic lying] Pulse Rate [orthos tatic sitting] Pulse Rate [orthos tatic standing] Respiratory Rate 24 Blood Pressure [Ri ght Arm] 155/104 H Blood Pressure [or thostatic lying] Blood Pressure [or thostatic sitting] Blood Pressure [or thostatic standing ] Pulse Oximetry 95 Oxygen Delivery Me thod Room Air Labs Labs: Laboratory Results - last 24 hr 07/26/22 07/27/22 07/27/22 06:20 08:25 08:25 WBC 11.57 H RBC 4.50 Hgb 12.5 Hct 38.9 MCV 86 MCH 28 MCHC 32 Plt Count 237 Sodium 140 Potassium 3.9 Chloride 109 Carbon Dioxide 23 BUN 30 Creatinine 1.7 H Estimated Creat Clear 23.06 Estimated GFR 29 Glucose 82 Calcium 8.8 Ionized Calcium Sarah Beth Magnesium 2.1 Total Bilirubin 1.1 AST 28 ALT 18 Alkaline Phosphatase 78 NT-Pro-B Natriuret Pep 4370 H 6580 H Total Protein 6.2 Albumin 3.2 L 07/27/22 08:25 WBC RBC Hgb Hct MCV MCH MCHC Plt Count Sodium Potassium Chloride Carbon Dioxide BUN Creatinine Estimated Creat Clear Estimated GFR Glucose Calcium Ionized Calcium Sarah Beth 1.18 Magnesium Total Bilirubin AST ALT Alkaline Phosphatase NT-Pro-B Natriuret Pep Total Protein Albumin
[2022-07-27] MEDS: FUROSEMIDE 10 MG/ML inj 40 MG IVP (11:36)
--- NOTE | 2022-07-27 18:05 | PC.NURSE ---
End of Shift: Patient pleasant and cooperative. Patient hypertensive but vitally stable, lungs clear, BS WNL, IV intact. Tele=A.fib. Patient 1 assist, walker, to toilet. Patient has had 3 BMs, 1 mod formed, 2 loose/soft (1 one of which was a blow out), and urinating. Patient tolerating regular diet, with little appetite. Patient rated pain at most 5/10 once, then also reports no pain. No pain meds given. Patient has been up in chair the most today since she's been here. 3 lap sited C/D/I.
[2022-07-27] MEDS: SENNOSIDES/DOCUSATE TABLET 1 TAB PO (21:06)
[2022-07-28] VITALS (7 sets, daily range): BP systolic 139–175; BP diastolic 79–104; PULSE 62–115; RESP 16–22; TEMP 36.8–37.4; O2SAT 94–99
[2022-07-28] MEDS: PIPERACILLIN/TAZOBACTAM 3.375 GM in 0.9 % SODIUM CHLORIDE Mini-bag 100 ML IVPB ×4 (02:46→20:46)
[2022-07-28 06:51] LABS: Hematocrit 35.4 % (33.0-51.0); Hemoglobin* 11.5 gm/dL (12.0-16.0); Mean Corpuscular HGB Conc 33 gm/dL (32-36); Mean Corpuscular Hemoglobin 28 pg (26-34); Mean Corpuscular Volume 85 fL (80-100); Platelet Count* 238 K/uL (140-440); Red Blood Count 4.15 m/uL (4.00-5.20); White Blood Count* 10.14 K/uL (4.50-11.00)
[2022-07-28 07:08] LABS: Slide Review Reflex No
[2022-07-28 07:09] LABS: Albumin* 2.7 g/dL (3.3-5.0); Chloride* 108 mmol/L (96-114)
[2022-07-28 07:10] LABS: Potassium* 3.2 mmol/L (3.6-5.1); Sodium* 140 mmol/L (135-149)
[2022-07-28 07:12] LABS: Alkaline Phosphatase* 64 U/L (40-150); Aspartate Amino Transferase* 22 U/L (12-35); Bilirubin Total* 0.8 mg/dL (0.1-1.5); Blood Urea Nitrogen* 31 mg/dL (7-30); Carbon Dioxide* 23 mmol/L (20-32); Creatinine* 1.8 mg/dL (0.5-1.5); Est. Creatinine Clearance* 21.78; Estimated Glomerular Filt Rate 27 ml/min; Total Protein* 5.4 g/dL (6.0-8.3)
[2022-07-28 07:13] LABS: Alanine Aminotransferase* 14 U/L (4-35); Calcium* 8.3 mg/dL (8.4-10.6); Glucose* 79 mg/dL (60-115)
--- NOTE | 2022-07-28 07:47 | PC.NURSE ---
END OF SHIFT NOTE: PT PLEASANT AND COOPERATIVE. OCCASIONALLY CONFUSED. VSS ON RA. AFEBRILE. LSCTA. AMBULATES WITH WALKER, GB, SBA. 3x LAP SITES CDI. DENIES CP, N/V, SOB. SLEPT WELL NOC.
--- NOTE | 2022-07-28 09:50 | PM.IMPN1 ---
Progress Note: A&P Assessment and plan (1) Atrial fibrillation: Problem details: RVR with presentation of acute appy; 07/23/22. Dilt drip during surgery; continue to monitor now rate controlled. Lovenox is being transitioned to oral eliquis (renally dosed) as afib persists. May want to consider outpatient cards with/without holter at discharge. Status: Acute Assessment and Plan: 07/28; tachycardic; increase metoprolol to 50 mg BID; replace potassium; check mg (2) Hypertension: Problem details: continue losartan/metoprolol Status: Acute Assessment and Plan: 07/28 hold losartan for today; prn hydralazine (3) Acute appendicitis: Problem details: continue abx as one blood culture is positive. clinically patient is much improved. as bowel function returns; we will advance diet. I've set up home health for PT/OT (to include home safety eval) for next week. Status: Acute (4) CKD (chronic kidney disease): Problem details: baseline 1.2-1.3; 3rd spacing; fluid bolus; will likely diuresis starting in the next 1-2 days; lasix challenge if needed Status: Acute Assessment and Plan: 07/28: Cr 1.8 today; previously 1.7; given lasix yesterday will hold losartan; give albumin+IVF NS 250cc (5) Macular degeneration: Status: Acute Plan 07/28: discussed with daughter; will not dc today; therapy and social work to continue evaluations; daughter very nervous about patient's home living situation Time Spent With Patient Total time spent: 30 minutes Subjective Date Seen: 07/28/22 Interval history: patient denies chest pain/sob doesn't feel as well as yesterday daughter very anxious and nervous about discharge +BM tolerating diet Exam Narrative: Exam Narrative: Gen: no acute distress HEENT: NCAT EOMI MMM CV: Tachycardic; IRIR L: CTAB Abd: soft, nt, nd Const: Vital Signs, click to edit/add: Vital Signs - 24 hr 07/27/22 11:00 07/27/22 15:00 07/27/22 15:00 Temperature 99.1 F 98.9 F Pulse Rate Pulse Rate [Apical ] Pulse Rate [Left P ulse Oximeter] 88 93 93 Pulse Rate [orthos tatic lying] Pulse Rate [orthos tatic sitting] Pulse Rate [orthos tatic standing] Respiratory Rate 22 18 18 Blood Pressure [Ri ght Arm] 152/80 H 171/96 H Blood Pressure [or thostatic lying] Blood Pressure [or thostatic sitting] Blood Pressure [or thostatic standing ] Pulse Oximetry 94 96 Oxygen Delivery Me thod Room Air Room Air 07/27/22 15:00 07/27/22 19:00 07/27/22 23:00 Temperature 99.1 F Pulse Rate 77 91 Pulse Rate [Apical ] 95 Pulse Rate [Left P ulse Oximeter] 109 H Pulse Rate [orthos tatic lying] Pulse Rate [orthos tatic sitting] Pulse Rate [orthos tatic standing] Respiratory Rate 18 Blood Pressure [Ri ght Arm] 166/88 H Blood Pressure [or thostatic lying] Blood Pressure [or thostatic sitting] Blood Pressure [or thostatic standing ] Pulse Oximetry 96 Oxygen Delivery Il thod Room Air 07/27/22 23:00 07/27/22 23:00 07/28/22 03:00 Temperature 98.1 F 98.5 F Pulse Rate Pulse Rate [Apical ] 95 Pulse Rate [Left P ulse Oximeter] 109 H 92 91 Pulse Rate [orthos tatic lying] Pulse Rate [orthos tatic sitting] Pulse Rate [orthos tatic standing] Respiratory Rate 18 20 22 Blood Pressure [Ri ght Arm] 126/78 159/94 H Blood Pressure [or thostatic lying] Blood Pressure [or thostatic sitting] Blood Pressure [or thostatic standing ] Pulse Oximetry 95 95 Oxygen Delivery Il thod Room Air Room Air 07/28/22 07:00 07/28/22 06:00 Temperature 98.2 F Pulse Rate Pulse Rate [Apical ] Pulse Rate [Left P ulse Oximeter] 115 H Pulse Rate [orthos tatic lying] 93 Pulse Rate [orthos tatic sitting] 94 Pulse Rate [orthos tatic standing] 115 H Respiratory Rate 22 Blood Pressure [Ri ght Arm] 175/104 H Blood Pressure [or thostatic lying] 148/90 H Blood Pressure [or thostatic sitting] 157/104 H Blood Pressure [or thostatic standing ] 175/104 H Pulse Oximetry 99 Oxygen Delivery Il thod Room Air Labs Labs: Laboratory Results - last 24 hr 07/28/22 07/28/22 06:02 06:02 WBC 10.14 RBC 4.15 Hgb 11.5 L Hct 35.4 MCV 85 MCH 28 MCHC 33 Plt Count 238 Sodium 140 Potassium 3.2 L Chloride 108 Carbon Dioxide 23 BUN 31 H Creatinine 1.8 H Estimated Creat Clear 21.78 Estimated GFR 27 Glucose 79 Calcium 8.3 L Total Bilirubin 0.8 AST 22 ALT 14 Alkaline Phosphatase 64 Total Protein 5.4 L Albumin 2.7 L
[2022-07-28] MEDS: SENNOSIDES/DOCUSATE TABLET 1 TAB PO ×2 (09:54→20:46)
[2022-07-28] MEDS: POTASSIUM CHLORIDE 10 MEQ CAPSULE ER 40 MEQ PO (09:54)
[2022-07-28] MEDS: APIXABAN 5 MG TABLET 2.5 MG PO ×2 (09:56→20:46)
[2022-07-28] MEDS: METOPROLOL TARTRATE 50 MG TABLET PO ×2 (09:59→20:46)
--- NOTE | 2022-07-28 10:06 | PM.GSPN ---
Subjective Subjective Date Seen: 07/28/22 Interval history: Patient is doing well this morning. She feels like she is getting better at moving around and has some more energy. Has been tolerating a diet without nausea or vomiting. Denies any real appetite. Is passing gas and had a bowel movement. Abdomen is soft and nontender, no concerns. Exam Narrative: Exam Narrative: General: Alert and oriented, no acute distress abdomen: Soft, nontender nondistended. Incisions clean/dry /intact. Const: Vital Signs, click to edit/add: Vital Signs - 24 hr 07/27/22 11:00 07/27/22 15:00 07/27/22 15:00 Temperature 99.1 F 98.9 F Pulse Rate Pulse Rate [Apical ] Pulse Rate [Left P ulse Oximeter] 88 93 93 Pulse Rate [orthos tatic lying] Pulse Rate [orthos tatic sitting] Pulse Rate [orthos tatic standing] Respiratory Rate 22 18 18 Blood Pressure [Ri ght Arm] 152/80 H 171/96 H Blood Pressure [or thostatic lying] Blood Pressure [or thostatic sitting] Blood Pressure [or thostatic standing ] Pulse Oximetry 94 96 Oxygen Delivery Me thod Room Air Room Air 07/27/22 15:00 07/27/22 19:00 07/27/22 23:00 Temperature 99.1 F Pulse Rate 77 91 Pulse Rate [Apical ] 95 Pulse Rate [Left P ulse Oximeter] 109 H Pulse Rate [orthos tatic lying] Pulse Rate [orthos tatic sitting] Pulse Rate [orthos tatic standing] Respiratory Rate 18 Blood Pressure [Ri ght Arm] 166/88 H Blood Pressure [or thostatic lying] Blood Pressure [or thostatic sitting] Blood Pressure [or thostatic standing ] Pulse Oximetry 96 Oxygen Delivery Me thod Room Air 07/27/22 23:00 07/27/22 23:00 07/28/22 03:00 Temperature 98.1 F 98.5 F Pulse Rate Pulse Rate [Apical ] 95 Pulse Rate [Left P ulse Oximeter] 109 H 92 91 Pulse Rate [orthos tatic lying] Pulse Rate [orthos tatic sitting] Pulse Rate [orthos tatic standing] Respiratory Rate 18 20 22 Blood Pressure [Ri ght Arm] 126/78 159/94 H Blood Pressure [or thostatic lying] Blood Pressure [or thostatic sitting] Blood Pressure [or thostatic standing ] Pulse Oximetry 95 95 Oxygen Delivery Me thod Room Air Room Air 07/28/22 07:00 07/28/22 06:00 Temperature 98.2 F Pulse Rate Pulse Rate [Apical ] Pulse Rate [Left P ulse Oximeter] 115 H Pulse Rate [orthos tatic lying] 93 Pulse Rate [orthos tatic sitting] 94 Pulse Rate [orthos tatic standing] 115 H Respiratory Rate 22 Blood Pressure [Ri ght Arm] 175/104 H Blood Pressure [or thostatic lying] 148/90 H Blood Pressure [or thostatic sitting] 157/104 H Blood Pressure [or thostatic standing ] 175/104 H Pulse Oximetry 99 Oxygen Delivery Me thod Room Air Labs/Imaging Labs Labs: WBC within normal limits. BMP significant for hypokalemia ( 3.2), creatinine is stable but elevated at 1.8. Progress Note: A&P Assessment and plan (1) Acute appendicitis: Problem details: continue abx as one blood culture is positive. clinically patient is much improved. as bowel function returns; we will advance diet. I've set up home health for PT/OT (to include home safety eval) for next week. Status: Acute Assessment and Plan: Patient is postop day 4 laparoscopic appendectomy for perforated appendicitis. Evidence of purulent peritonitis intraoperatively. Clinically patient has remained afebrile with normal WBC. Blood cultures from 07/24 are growing positive for gram-negative rods. Overall patient doing well postoperatively with return of bowel function and tolerating regular diet. Ambulating independently with pain well controlled. Okay to discharge from a surgical perspective, however will defer to the hospitalist for further management of her comorbidities. Patient likely will stay an additional night given evidence of AFib RVR and electrolyte abnormalities.
[2022-07-28] MEDS: 0.9 % SODIUM CHLORIDE 250 ml 250 ML IV (10:18)
[2022-07-28] MEDS: ALBUMIN HUMAN 25% 100 ML VIAL IV ×2 (11:27→17:09)
--- NOTE | 2022-07-28 18:02 | PC.NURSE ---
End of Shift: Patient pleasant and cooperative. Patient vitally stable, lungs clear, BS WNL, IV SL and intact. Patient denies pain. Patient SBA w/walker to the toilet. Patient has had less incontinence. Patient tolerating regular diet, and up in chair. Patient had 2 BMs today. Tele=A.fib.
[2022-07-28 22:19] LABS: C.Difficile Negative (Negative); CDIFFEPI 027 PRESUMPTIVE NEGATIVE (Negative)
[2022-07-29] VITALS (9 sets, daily range): BP systolic 120–151; BP diastolic 73–90; PULSE 67–96; RESP 16–20; TEMP 36.4–36.7; O2SAT 92–96
[2022-07-29] MEDS: ONDANSETRON 2 MG/ML inj IVP (01:01)
[2022-07-29] MEDS: PIPERACILLIN/TAZOBACTAM 3.375 GM in 0.9 % SODIUM CHLORIDE Mini-bag 100 ML IVPB ×4 (02:26→21:30)
[2022-07-29] MEDS: 0.9 % SODIUM CHLORIDE 250 ml IV (02:32)
--- NOTE | 2022-07-29 05:16 | PC.NURSE ---
Addendum entered by Gabby Longo RN 07/29/22 06:21: D-diff Neg Original Note: Shift note:Pt complained of having frequent loose stool. notified and ordered stool sample for C.diff. Sample collected and send to the lab. Pt complained of nausea at 0100 and was effectively managed with Zofran. Denied any pain. V/S within normal limit. Assist of 2 with walker and GB.
[2022-07-29 06:59] LABS: Hematocrit 31.9 % (33.0-51.0); Hemoglobin* 10.4 gm/dL (12.0-16.0); Mean Corpuscular HGB Conc 33 gm/dL (32-36); Mean Corpuscular Hemoglobin 28 pg (26-34); Mean Corpuscular Volume 86 fL (80-100); Platelet Count* 250 K/uL (140-440); Red Blood Count 3.73 m/uL (4.00-5.20); White Blood Count* 8.97 K/uL (4.50-11.00)
[2022-07-29 07:01] LABS: Slide Review Reflex No
[2022-07-29 07:08] LABS: Chloride* 111 mmol/L (96-114)
[2022-07-29 07:09] LABS: Potassium* 3.4 mmol/L (3.6-5.1); Sodium* 140 mmol/L (135-149)
[2022-07-29 07:11] LABS: Bilirubin Total* 0.6 mg/dL (0.1-1.5); Carbon Dioxide* 23 mmol/L (20-32); Creatinine* 1.5 mg/dL (0.5-1.5); Est. Creatinine Clearance* 26.14; Estimated Glomerular Filt Rate 34 ml/min
[2022-07-29 07:12] LABS: Alanine Aminotransferase* 14 U/L (4-35); Alkaline Phosphatase* 50 U/L (40-150); Aspartate Amino Transferase* 19 U/L (12-35); Blood Urea Nitrogen* 25 mg/dL (7-30); Calcium* 8.3 mg/dL (8.4-10.6); Glucose* 127 mg/dL (60-115); Total Protein* 5.4 g/dL (6.0-8.3)
[2022-07-29] MEDS: METOPROLOL TARTRATE 50 MG TABLET PO ×2 (09:03→21:31)
[2022-07-29] MEDS: APIXABAN 5 MG TABLET 2.5 MG PO ×2 (09:04→21:30)
[2022-07-29] MEDS: SODIUM CHLORIDE 0.9 % (FLUSH) 10 ML SYRINGE 5 ML IVF ×3 (09:04→21:31)
--- NOTE | 2022-07-29 11:01 | PM.IMPN1 ---
Progress Note: A&P Assessment and plan (1) Acute appendicitis: Problem details: continue zosyn Status: Acute (2) Bacteremia: Problem details: Gram negative anaerobic rods; sensitivity/final culture pending Status: Acute Assessment and Plan: continue zosyn; final antibiotic regimen once cultures finalize (3) Acute kidney injury: Problem details: Cr improved to 1.5, baseline 1.2-1.3; given albumin/IVF 07/28 Status: Acute Assessment and Plan: continue to hold losartan (4) Hypertension: Problem details: continue metoprolol; hold losartan Status: Acute (5) Atrial fibrillation: Problem details: RVR with presentation of acute appy; 07/23/22. Dilt drip during surgery; continue to monitor now rate controlled. Lovenox is being transitioned to oral eliquis (renally dosed) as afib persists. May want to consider outpatient cards with/without holter at discharge. Status: Acute Assessment and Plan: currently rate controlled with increase metoprolol to 50 mg BID on 07/28 continue eliquis (6) CKD (chronic kidney disease): Problem details: baseline 1.2-1.3; Status: Acute Time Spent With Patient Total time spent: 25 minutes Subjective Date Seen: 07/29/22 Interval history: no acute events overnight per micro lab blood cx still pending patient having diarrhea, probiotic added by surgery team minimal abdominal pain tolerating diet Exam Narrative: Exam Narrative: Gen: no acute distress HEENT: NCAT EOMI MMM CV: IRIR s1 s2 LCTAB Abd: soft, nt, nd Const: Vital Signs, click to edit/add: Vital Signs - 24 hr 07/28/22 15:00 07/28/22 15:00 07/28/22 15:00 Temperature 99.4 F Pulse Rate 82 Pulse Rate [Apical ] Pulse Rate [Left P ulse Oximeter] 78 79 Pulse Rate [orthos tatic lying] Pulse Rate [orthos tatic sitting] Pulse Rate [orthos tatic standing] Respiratory Rate 20 20 Blood Pressure [Ri ght Arm] 147/79 H Blood Pressure [or thostatic lying] Blood Pressure [or thostatic sitting] Blood Pressure [or thostatic standing ] Pulse Oximetry 94 Oxygen Delivery Me thod Room Air 07/28/22 19:00 07/28/22 23:00 07/28/22 23:00 Temperature 99 F Pulse Rate 72 Pulse Rate [Apical ] Pulse Rate [Left P ulse Oximeter] 91 91 Pulse Rate [orthos tatic lying] Pulse Rate [orthos tatic sitting] Pulse Rate [orthos tatic standing] Respiratory Rate 18 18 Blood Pressure [Ri ght Arm] 139/91 H Blood Pressure [or thostatic lying] Blood Pressure [or thostatic sitting] Blood Pressure [or thostatic standing ] Pulse Oximetry 95 Oxygen Delivery Me thod Room Air 07/28/22 23:00 07/29/22 03:00 07/29/22 06:00 Temperature 98.6 F 97.9 F Pulse Rate Pulse Rate [Apical ] 62 72 Pulse Rate [Left P ulse Oximeter] 95 96 Pulse Rate [orthos tatic lying] 82 Pulse Rate [orthos tatic sitting] 77 Pulse Rate [orthos tatic standing] 75 Respiratory Rate 18 18 Blood Pressure [Ri ght Arm] 141/102 H 120/86 Blood Pressure [or thostatic lying] 123/73 Blood Pressure [or thostatic sitting] 148/90 H Blood Pressure [or thostatic standing ] 143/89 H Pulse Oximetry 95 95 Oxygen Delivery Pr thod Room Air Room Air 07/29/22 07:00 07/29/22 07:00 07/29/22 07:00 Temperature 97.5 F L Pulse Rate 71 Pulse Rate [Apical ] 71 Pulse Rate [Left P ulse Oximeter] 68 Pulse Rate [orthos tatic lying] Pulse Rate [orthos tatic sitting] Pulse Rate [orthos tatic standing] Respiratory Rate 18 Blood Pressure [Ri ght Arm] 141/79 H Blood Pressure [or thostatic lying] Blood Pressure [or thostatic sitting] Blood Pressure [or thostatic standing ] Pulse Oximetry 95 Oxygen Delivery Pr thod Room Air Labs Labs: Laboratory Results - last 24 hr 07/28/22 07/29/22 07/29/22 19:41 06:11 06:11 WBC 8.97 RBC 3.73 L Hgb 10.4 L Hct 31.9 L MCV 86 MCH 28 MCHC 33 Plt Count 250 Sodium 140 Potassium 3.4 L Chloride 111 Carbon Dioxide 23 BUN 25 Creatinine 1.5 Estimated Creat Clear 26.14 Estimated GFR 34 Glucose 127 H Calcium 8.3 L Total Bilirubin 0.6 AST 19 ALT 14 Alkaline Phosphatase 50 Total Protein 5.4 L Albumin 3.0 L Stl C.difficile Tox PCR Negative St C. diff Tox Epid 027 PRESUMPTIVE NEGATIVE
--- NOTE | 2022-07-29 11:11 | PC.SOCIAL ---
Phone call to [facility], [facility]. at [phone] intake to provide an update that pt is discharging today (07/29/22). Intake will update pt's chart.
--- NOTE | 2022-07-29 11:23 | PC.SOCIAL ---
Addendum entered by ERNESTO Gibson 07/29/22 16:30: Logging Crew Foreman has read and agrees with this note. Original Note: Social work provided copy of Important Message from Medicare form to pt. Pt. verbally expressed that she did not want to appeal her discharge.
[2022-07-29] MEDS: LACTOBACILLUS ACIDOPHILUS 1 TABLET 1 TAB PO ×2 (11:35→18:07)
--- NOTE | 2022-07-29 18:35 | PC.NURSE ---
PATIENT PLEASANT AND COOPERATIVE, UP A1 WALKER AND BELT TOLERATING WELL, LAP SITES INTACT TO ABDOMEN WITH GLUE, BOWEL SOUNDS ACTIVE, TOLERATING REGULAR DIET, LOOSE BM THIS MORNING STOOL SOFTENER HELD, PATIENT CONTINUES TO NEED ASSISTANCE WITH TOILETING, UNABLE TO CHANGE OWN BRIEF WITHOUT ASSISTANCE ENCOURAGING PATIENT TO TRY ON OWN, NEED REMINDERS TO WIPE FRONT TO BACK, ASKING FOR ASSISTANCE WITH CARES AFTER A STOOL PATIENT ENCOURAGED TO DO IT ON OWN BUT SOME ASSISTANCE IS STILL NEEDED, PATIENT CONTINUES TO WANT TO GO HOME AT DISCHARGE, PRESENT AT BESIDE AND SUPPORTIVE.
[2022-07-30] MEDS: PIPERACILLIN/TAZOBACTAM 3.375 GM in 0.9 % SODIUM CHLORIDE Mini-bag 100 ML IVPB ×2 (03:04→08:53)
[2022-07-30] MEDS: 0.9 % SODIUM CHLORIDE 250 ml IV (03:04)
[2022-07-30 03:09] VITALS: BP 131/84; PULSE 81; RESP 20; TEMP 36.6; O2SAT 94
--- NOTE | 2022-07-30 03:33 | PC.NURSE ---
19-: Pt ambulated around the nursing desk tolerated well, pain minimal, no medication needed. VSS on RA. I&O adeq.
[2022-07-30 07:00] VITALS: BP 161/97; PULSE 59; PULSE 77; RESP 16; TEMP 36.6; O2SAT 96
[2022-07-30 07:22] LABS: Hematocrit 36.1 % (33.0-51.0); Hemoglobin* 11.6 gm/dL (12.0-16.0); Mean Corpuscular HGB Conc 32 gm/dL (32-36); Mean Corpuscular Hemoglobin 28 pg (26-34); Mean Corpuscular Volume 87 fL (80-100); Platelet Count* 322 K/uL (140-440); Red Blood Count 4.17 m/uL (4.00-5.20); White Blood Count* 8.74 K/uL (4.50-11.00)
[2022-07-30 07:24] LABS: Slide Review Reflex No
[2022-07-30 07:45] LABS: Albumin* 3.3 g/dL (3.3-5.0); Chloride* 112 mmol/L (96-114)
[2022-07-30 07:46] LABS: Potassium* 3.4 mmol/L (3.6-5.1); Sodium* 141 mmol/L (135-149)
[2022-07-30 07:48] LABS: Alanine Aminotransferase* 16 U/L (4-35); Alkaline Phosphatase* 59 U/L (40-150); Aspartate Amino Transferase* 23 U/L (12-35); Bilirubin Total* 0.6 mg/dL (0.1-1.5); Blood Urea Nitrogen* 19 mg/dL (7-30); Carbon Dioxide* 24 mmol/L (20-32); Creatinine* 1.4 mg/dL (0.5-1.5); Estimated Glomerular Filt Rate 37 ml/min; Glucose* 102 mg/dL (60-115)
[2022-07-30 07:49] LABS: Calcium* 8.3 mg/dL (8.4-10.6)
[2022-07-30] MEDS: LACTOBACILLUS ACIDOPHILUS 1 TABLET 1 TAB PO (08:52)
[2022-07-30] MEDS: APIXABAN 5 MG TABLET 2.5 MG PO (08:53)
[2022-07-30] MEDS: METOPROLOL TARTRATE 50 MG TABLET PO (08:54)
[2022-07-30] MEDS: SODIUM CHLORIDE 0.9 % (FLUSH) 10 ML SYRINGE 5 ML IVF (08:55)
[2022-07-30 11:00] VITALS: BP 155/92; PULSE 78; RESP 16; TEMP 37.6; O2SAT 95
--- NOTE | 2022-07-30 11:36 | P.DS_ITS ---
DS: Providers Provider Date Seen: 07/30/22 Date of admission: 07/24/22 09:05 Primary care physician: Bc Granger MD Admitting Clinician: Estela Sadler MD Consults: PT, OT Attending Physician on discharge: Rosalee Lacy MD Date of Discharge: 07/30/22 DS: Diagnosis Discharge Diagnosis (1) Acute appendicitis: Status: Acute Problem details: - s/p appendectomy 07/24/[address] Sadler (2) Bacteremia: Status: Acute Problem details: - Gram negative anaerobic rods; sensitivity/final culture pending on 07/30 (send out) - patient completed 6 day course of IV Zosyn, normal WBC and afebrile (3) Atrial fibrillation: Status: Acute Problem details: - RVR on admission, 07/23/22. Treated with diltiazem gtt during surgery, rate controlled postoperatively - transitioned from Lovenox to renally dosed Eliquis - added Metoprolol for rate control - PCP f/u next week, consider outpatient cardiology workup (4) Acute kidney injury: Status: Acute Problem details: - peak Cr 1.8, Outpatient baseline 1.2-1.3; given albumin/IVF 07/28 - creatinine on 07/30 (d/c) 1.4 (5) CKD (chronic kidney disease): Status: Acute (6) Hypertension: Status: Acute Problem details: - transitioned from Amlodipine to Metoprolol for rate control, age appropriate BP control during stay DS: Summary Hospital Course Hospital Course: 82-year-old female who lives independently in [place] with her , admitted on 07/24/2022 for acute appendicitis. Appendix found to be perforated during surgery (Dr. Sadler), treated with IV Zosyn; has completed 6 day course on hospital discharge. In the ED, patient found to be in atrial fibrillation with RVR, treated with a diltiazem drip intra-operatively. Oral Metoprolol initiated, rate controlled postoperatively with this (stopped home dose of amlodipine to limit risk of hypotension). Renally dosed Eliquis initiated for prophylaxis, outpatient follow-up to discuss cardiology workup. + blood cultures on admission: gram-negative anaerobic rods, formal ID and sensitivities pending (send out). Other notable findings during hospital stay with details per above. Kylah was seen by PT and OT postoperatively for illness/deconditioning. On 07/30/22, patient appropriate for d/c given normal WBC, afebrile status, completion of IV abx, significantly improved clinical status. She will be going home with her ; home healthcare referrals placed upon discharge and family lives locally. Routine follow-up with PCP and General surgery. Status at Discharge Functional status at discharge: uses cane/walker Overall status at discharge: patient is progressing back to baseline Time Spent with Patient Time attestation: Total time spent providing and/or coordinating discharge services: Time spent: Greater than 30 minutes Specific discharge activities: Medication reconciliation, update to patient and family. Exam Narrative: Exam Narrative: GEN: Alert and oriented, sitting comfortably in bedside chair and answering questions appropriately HEENT: Normal external ears, EOMIs bilaterally, no scleral icterus CV: Rate controlled atrial fibrillation without any concerning murmurs R: LCTA bilaterally without concerning wheezing, rales, or rhonchi. Air movement adequate Abdomen: Soft, tolerates palpation Skin: No concerning skin lesions or rashes on exposed skin Neuro: No focal deficits, no resting tremor ambulating well with walker and PT in hallway Psych: Appropriate Const: Vital Signs, click to edit/add: Vital Signs - 24 hr 07/29/22 15:00 07/29/22 15:00 07/29/22 15:00 Temperature 97.9 F Pulse Rate 67 Pulse Rate [Apical ] Pulse Rate [Left P ulse Oximeter] 70 70 Respiratory Rate 16 Blood Pressure [Ri ght Arm] 140/82 H Pulse Oximetry 96 Oxygen Delivery Me thod Room Air 07/29/22 19:53 07/29/22 22:39 07/29/22 22:44 Temperature 98.1 F 97.9 F Pulse Rate Pulse Rate [Apical ] 86 86 83 Pulse Rate [Left P ulse Oximeter] 70 Respiratory Rate 16 20 Blood Pressure [Ri ght Arm] 151/90 H 122/81 Pulse Oximetry 96 96 Oxygen Delivery Me thod Room Air Room Air 07/29/22 23:20 07/30/22 03:09 07/30/22 07:00 Temperature 97.8 F Pulse Rate 69 77 Pulse Rate [Apical ] 81 Pulse Rate [Left P ulse Oximeter] Respiratory Rate 20 Blood Pressure [Ri ght Arm] 131/84 Pulse Oximetry 94 Oxygen Delivery Me thod Room Air 07/30/22 07:00 07/30/22 07:00 Temperature 97.8 F Pulse Rate Pulse Rate [Apical ] 59 L 59 L Pulse Rate [Left P ulse Oximeter] Respiratory Rate 16 Blood Pressure [Ri ght Arm] 161/97 H Pulse Oximetry 96 Oxygen Delivery Me thod Room Air DS: Data Data Completed and Pending Labs on day of discharge: Labs from last 24 hours 07/30/22 07/30/22 06:34 06:34 WBC 8.74 RBC 4.17 Hgb 11.6 L Hct 36.1 MCV 87 MCH 28 MCHC 32 Plt Count 322 Sodium 141 Potassium 3.4 L Chloride 112 Carbon Dioxide 24 BUN 19 Creatinine 1.4 Estimated Creat Clear 28.00 Estimated GFR 37 Glucose 102 Calcium 8.3 L Total Bilirubin 0.6 AST 23 ALT 16 Alkaline Phosphatase 59 Total Protein 6.0 Albumin 3.3 Preliminary micro results at discharge 07/24/22 00:45 Blood Culture - Preliminary Blood - Picc Line Gram negative shaji 07/24/22 00:50 Blood Culture - Preliminary Blood - Picc Line Gram negative shaji Discharge Plan Discharge Disposition: Home, Self-Care Date of Admission: 07/24/22 09:05 Attending Provider on Discharge: Rosalee Lacy Consulting Providers: Estela Sadler Primary Care Provider: Bc Granger Condition: Improved Anticipated Discharge Date/Time: 07/28/22 10:09 Discharge Medications: New oxycodone 5 mg tablet 5 mg PO Q6H PRN (Reason: pain) Qty: 10 0RF senna 8.6 mg capsule 8.6 mg PO DAILY PRN (Reason: constipation) Qty: 90 0RF Rx Instructions: Please take stool softeners while on narcotic pain medicine. Stop if having greater than 2 bowel movements per day. metoprolol tartrate 50 mg Tablet 50 mg PO BID 30 Days Qty: 60 0RF Eliquis 5 mg Tablet 2.5 mg PO BID 30 Days Qty: 60 0RF Continued losartan 100 mg tablet 100 mg PO DAILY PreserVision AREDS-2 250-90-40-1 mg capsule 1 tab PO DAILY Discontinued amlodipine 5 mg tablet 5 mg PO DAILY Discharge Orders: Discharge Order (Routine); Ordered 07/30/22 Ordered By: Rosalee Lacy Patient Education: Metoprolol (By mouth), Oxycodone, Rapid Release (By mouth), Apixaban (By mouth), Senna (By mouth), A-fib (Atrial Fibrillation) (DC), Post- Operative Instructions: Appendectomy Additional Instructions: Please call the clinic or come to the emergency department if you experience at home any increasing abdominal pain or fevers. Okay to shower at home. Do not soak in a bath or swim for 2 weeks. Activity Level: Activity as Tolerated Activity Detail: Activity as tolerated. Avoid strenuous activity. No lifting greater than 20 lb for 2 weeks. Discharge Diet: Regular Follow Up Appointments: Estela Sadler MD [Staff Physician] - 08/13/22 1:30 pm (Phone call appointment ) Bc Granger MD [Primary Care Provider] - 08/08/22 9:45 am Forms: [employer] Info Instructions
--- NOTE | 2022-07-30 13:57 | PC.NURSE ---
PATIENT DISCHARGED TO HOME WITH , PATIENT AND DTR VERBALIZED UNDERSTANDING OF DISCHARGE INFORMATION AND HAD NO FURTHER QUESTIONS AT THIS TIME, ALL BELONGINGS SENT WITH PATIENT, IV REMOVED CATHETER INTACT, PATIENT PLEASANT AND COOPERATIVE, UP SBA WITH WALKER AND GAIT BELT, 2 LOOSE BMS THIS SHIFT PATIENT CONTINENT X1 BOWEL MOVEMENT, DECLINING PAIN, LAP SITES INTACT TO ABDOMEN, TELE AFIB, PATIENT LEFT VIA WHEELCHAIR AROUND 1335.
[2022-07-30 14:04] VITALS: BP 115/71; PULSE 77; RESP 16; TEMP 37.6
== END 2022-07-30 13:35 | disposition home health service (06) | DRG 339 ==
LOC: ED 07-24 05:52 → OR 07-24 06:21 → MEDSURG 07-24 10:45
PROVIDERS: Family Medicine; Hospitalist; Admitting Provider Surgery; Emergency Provider Internal Medicine; PCP Family Medicine; Visit Provider Surgery
PROC: 0DTJ4ZZ Resection of Appendix, Percutaneous Endoscopic Approach (ICD-10-PCS; CPT 44970; principal; 2022-07-24 06:15)
DX: K35.33 Acute appendicitis with perforation, localized peritonitis, and gangrene, with abscess (principal); K56.7 Ileus, unspecified; N17.9 Acute kidney failure, unspecified; R78.81 Bacteremia; I48.91 Unspecified atrial fibrillation; E87.6 Hypokalemia; N18.9 Chronic kidney disease, unspecified; I13.10 Hypertensive heart and chronic kidney disease without heart failure, with stage 1 through stage 4 chronic kidney disease, or unspecified chronic kidney disease; I71.21 Aneurysm of the ascending aorta, without rupture; Z87.442 Personal history of urinary calculi; H40.9 Unspecified glaucoma; H35.30 Unspecified macular degeneration; B96.89 Other specified bacterial agents as the cause of diseases classified elsewhere
CPT/HCPCS: 00840; 36415; 64488; 71260; 74177; 76942; 80048; 80053; 81003; 81015; 82330; 82803; 83605; 83735; 83880; 84484; 85018; 85025; 85027; 85379; 87040; 87076; 87086; 87493; 87502; 87634; 87635; 88304; 93005; 93306; 94761; 97110; 97116; 97161; 97165; 97530; 97535; 99100; 99140; 99284; 99285; A9270; C9113; C9290; J0330; J1650; J1940; J2405; J2543; J2704; J2710; J3010; J3490; J7030; J7050; J7120; P9047; Q9967

== ENCOUNTER 2023-03-07 09:30 | Outpatient (CLI) | payer MEDICARE, OTHER, SELFPAY | END 2023-03-07 09:31 | disposition home or self-care (01) | LOC: AMB 03-11 12:06 | PROVIDERS: PCP Family Medicine; Visit Provider Family Medicine | DX: R41.82 Altered mental status, unspecified (principal); I49.9 Cardiac arrhythmia, unspecified | CPT/HCPCS: A0425; A0427 ==

== ENCOUNTER 2023-03-07 09:55 | Observation (INO) | payer MEDICARE, OTHER, SELFPAY ==
[2023-03-07] VITALS (15 sets, daily range): BP systolic 113–140; BP diastolic 57–82; PULSE 58–94; RESP 16–18; TEMP 35.9–37.1; O2SAT 94–100; BMI 25.0; BMI 26.3
--- NOTE | 2023-03-07 10:16 | ED_ITS ---
HPI - Arrhythmia/Palpitations General Time Seen by Provider: 10:16 Date Seen: 03/07/23 Chief Complaint: Arrhythmia/Palpitations Stated Complaint: Bradycardia Time Seen by Provider: 03/07/23 10:16 Source: patient, family, RN notes reviewed and old records reviewed Mode of arrival: EMS Limitations: no limitations History of Present Illness HPI narrative: Kylah is a very pleasant 82-year-old female with a history of chronic kidney disease, chronic AFib currently on Eliquis as well as hypertension who comes to the emergency room via EMS after having a syncopal episode associated with vomiting and diarrhea. Patient notes that she takes a stool softener every night as she has had longstanding constipation. She was at breakfast this morning with multiple friends and had the need for a bowel movement and thus went to the bathroom. She notes that was soft but not excessively difficult to produce. She felt well and return to the table. She notes that she was somewhat tired and the next thing she remembers her friends were calling her name. According to Kylah her friends told her that she was out just a matter of seconds. However, once she was awake she throughout up. Her friends were worried about a stroke although there is no report of tremulous or shaking at this point. EMS was called and upon their arrival they transferred her to the ambulance and she had multiple episodes of loose diarrhea stools and vomited on herself. Here in the emergency room she states she is tired but otherwise has no complaints. During this entire time she had no chest pain, shortness of breath or abdominal pain. She has not been experienced any recent fever chills difficulty breathing and has otherwise been well. The diarrhea she is experiencing has been nonbloody. She has this usually does not happen to her. Related Data Home Medications Medication Instructions Recorded Confirmed losartan 100 mg tablet 100 mg PO DAILY 07/24/22 03/07/23 vit C 250 mg-vit E 90 mg-zinc 40 1 tab PO DAILY 07/24/22 03/07/23 mg-copper 1 [id number] capsule (PreserVision AREDS-2) amlodipine 5 mg tablet 5 mg PO DAILY 03/07/23 03/07/23 apixaban 2.5 mg tablet (Eliquis) 2.5 mg PO BID 03/07/23 03/07/23 docusate sodium 100 mg capsule 100 mg PO HS 03/07/23 03/07/23 (Col-Rite) Previous Rx's Medication Instructions Recorded metoprolol tartrate 50 mg tablet 50 mg PO BID 30 days #60 tabs 07/30/22 Allergies Allergy/AdvReac Type Severity Reaction Status Date / Time No Known Drug Allergies Allergy Verified 07/23/22 23:27 Review of Systems Status of ROS: Reports: 10 or more systems reviewed and unremarkable except as noted in History and below Const: Denies: fever or chills Eyes: Denies: change in vision ENMT: Denies: throat pain, neck pain, difficulty swallowing or hoarseness Cardio: Denies: chest pain, palpitations, swelling of feet/ankles, lightheadedness or shortness of breath with exertion Resp: Denies: shortness of breath, cough or wheezing GI: Reports: nausea, vomiting and diarrhea; Denies: abdominal pain, difficulty swallowing or blood in stool : Reports: urinary frequency; Denies: painful urination Musculo: Denies: neck pain Integ/Breast: Denies: rash Neuro: Denies: headache or numbness in extremities Allergy/Immuno: Denies: wheezing [facility] Medical History (Updated 03/07/23 @ 17:09 by Rosalee Lacy MD) Atrial fibrillation, chronic ?I48.20 - Chronic atrial fibrillation, unspecified (ICD-10) Tibia/fibula fracture ?S82.209A - Unspecified fracture of shaft of unspecified tibia, initial encounter for closed fracture (ICD-10) ?S82.409A - Unspecified fracture of shaft of unspecified fibula, initial encounter for closed fracture (ICD-10) Left ureteral stone ?N20.1 - Calculus of ureter (ICD-10) Macular degeneration ?H35.30 - Unspecified macular degeneration (ICD-10) Osteopenia ?M85.80 - Other specified disorders of bone density and structure, unspecified site (ICD-10) Diverticulosis ?K57.90 - Diverticulosis of intestine, part unspecified, without perforation or abscess without bleeding (ICD-10) Hypertension ?I10 - Essential (primary) hypertension (ICD-10) Glaucoma ?H40.9 - Unspecified glaucoma (ICD-10) Surgical History H/O cataract extraction ?Z98.49 - Cataract extraction status, unspecified eye (ICD-10) S/P ORIF (open reduction internal fixation) fracture ?Z98.890 - Other specified postprocedural states (ICD-10) ?Z87.81 - Personal history of (healed) traumatic fracture (ICD-10) H/O tubal ligation ?Z98.51 - Tubal ligation status (ICD-10) S/P cystoscopy with ureteral stent placement ?Z96.0 - Presence of urogenital implants (ICD-10) History of tonsillectomy ?Z90.89 - Acquired absence of other organs (ICD-10) Social History Narrative: lives with , grew up in [place], three adult kids. Luis (daughter) lives in [place] and helps her parents: [phone] What is your current living situation?: I presently have a place to live Problems where you live: no known problems Problems where you live details: n/a In the past 12 months, utilities in danger of being shut off: no In the past 12 mos, have been you worried that your food would run out before you had money to buy more?: never true In the past 12 mos, the food you bought just didn't last and you didn't have money to buy more?: never true Smoking Status: Never smoker Do you use any of these nicotine containing products: None Second hand tobacco smoke exposure: Yes (child) How often do you have a drink containing alcohol: monthly or less Alcohol type details: drink on new years How often do you have six or more drinks on one occasion: Never AUDIT-C Alcohol total score: 1 Non-prescribed substance use: denies use Caffeine: Yes How often does anyone, including family, friends and others, physically hurt you : never How often does anyone, including family, friends and others, insult or talk down to you: never How often does anyone, including family, friends and others, threaten you with harm: never How often does anyone, including family, friends and others, scream or curse at you: never service: No Exam Narrative: Exam Narrative: Alert and oriented. Not in any acute distress. Does smell strongly of stool. GCS of 15. Head is atraumatic normocephalic. Neck is supple without discomfort. No lymphadenopathy. Kizzy symmetrical. Mentation is normal speech is normal. Heart with regular rate but irregularly irregular rhythm. Heart monitor shows heart rates in the low 60s atrial fibrillation. Abdomen is soft nontender. Lower extremities without edema. Moving all extremities. Strength and motor intact. Visual agosto unchanged from previous. Const: Vital Signs, click to edit/add: Vital Signs - 24 hr 03/07/23 10:00 03/07/23 10:11 03/07/23 10:30 Temperature 96.7 F L Pulse Rate 67 71 Pulse Rate [Apical ] 66 Respiratory Rate 18 Blood Pressure Blood Pressure [Ri ght Upper Arm] 119/72 Pulse Oximetry 97 96 97 Oxygen Delivery Me thod Room Air 03/07/23 10:31 03/07/23 10:32 03/07/23 11:00 Temperature Pulse Rate 62 69 58 L Pulse Rate [Apical ] Respiratory Rate Blood Pressure 120/82 Blood Pressure [Ri ght Upper Arm] Pulse Oximetry 95 97 98 Oxygen Delivery Me thod 03/07/23 11:01 03/07/23 11:02 03/07/23 11:30 Temperature Pulse Rate 60 62 70 Pulse Rate [Apical ] Respiratory Rate Blood Pressure 113/57 L Blood Pressure [Ri ght Upper Arm] Pulse Oximetry 98 98 97 Oxygen Delivery Me thod 03/07/23 11:31 03/07/23 12:02 Temperature Pulse Rate 65 68 Pulse Rate [Apical ] Respiratory Rate Blood Pressure 125/75 Blood Pressure [Ri ght Upper Arm] Pulse Oximetry 100 96 Oxygen Delivery Me thod Documenting provider has reviewed patient's vital signs: yes Course Reevaluation(s) Reevaluation #1: Patient noted to have syncopal episode followed by vomiting and diarrhea. As she was able to make it back from the bathroom and does not report significant straining or any blood in her stool. Differential diagnosis does include vasovagal response, symptomatic bradycardia, seizure, gastroenteritis. Will obtain EKG, troponin, placed on a vehicle monitor technician, CBC, comprehensive, urinalysis. Given her use of Eliquis will also obtain head CT. This seems more seizure oriented to me. Reevaluation #2: Patient continues to do well. Do not have all of her results. She is agreeable to staying overnight as we do not have an explanation at this point for her syncopal episode. Vital Signs Vital signs: Initial Vital Signs Temperature 96.7 F L 03/07/23 10:00 Temperature Source Temporal Artery Scan 03/07/23 10:00 Pulse Rate 66 03/07/23 10:00 Pulse Rhythm Irregular 03/07/23 10:00 Respiratory Rate 18 03/07/23 10:00 Blood Pressure 119/72 03/07/23 10:00 Blood Pressure Mean 87 03/07/23 10:00 Blood Pressure Position Supine 03/07/23 10:00 Pulse Oximetry 97 03/07/23 10:00 Oxygen Delivery Method Room Air 03/07/23 10:00 Vital Signs Temperature 96.7 F L 03/07/23 10:00 Pulse Rate 66 03/07/23 10:00 Respiratory Rate 18 03/07/23 10:00 Blood Pressure 119/72 03/07/23 10:00 Pulse Oximetry 97 03/07/23 10:00 Oxygen Delivery Method Room Air 03/07/23 10:00 Temperature 98.7 F 03/07/23 19:15 Pulse Rate 94 03/07/23 19:15 Respiratory Rate 16 03/07/23 19:15 Blood Pressure 125/72 03/07/23 19:15 Pulse Oximetry 94 03/07/23 19:15 Oxygen Delivery Method Room Air 03/07/23 19:15 MDM - Arrhythmia/Palpitations MDM Narrative Medical decision making narrative: 1. Syncopal episode-EKG within normal limits. Troponin negative x2. lunchroom monitor continue continue to show heart rate 50s to 60s but no other abnormalities. Patient received 1 L of normal saline. 2. Vomiting and diarrhea-no further episodes in the emergency room. Electrolytes normal. 3. Disposition-admission for overnight observation. Have requested a head CT prior to being transfer to the floor. Dr. Henson accepts this patient for admission. Addendum: By my read CT is grossly abnormal in the right frontal hemisphere with loss of white matter. I called to speak to regarding my concerns for abnormality. She will follow-up with the official radiological read and speak to patient. Medical Records Attestation: I reviewed the patient's medical records. Lab Data Attestation: I reviewed the patient's lab results. Labs: Lab Results 03/07/23 03/07/23 Range/Units 10:36 10:40 WBC 5.91 (4.50-11.00) K/uL RBC 4.76 (4.00-5.20) m/uL Hgb 12.9 (12.0-16.0) gm/dL Hct 42.2 (33.0-51.0) % MCV 89 (80-100) fL MCH 27 (26-34) pg MCHC 31 L (32-36) gm/dL RDW Coeff of Lillian 14.9 (11.5-15.5) % Plt Count 194 (140-440) K/uL Neut % (Auto) 73.6 H (42.0-72.0) % Lymph % (Auto) 16.2 L (20-44) % [place] % (Auto) 7.3 (0.0-11.0) % Eos % (Auto) 2.5 (0.0-7.0) % Baso % (Auto) 0.2 (0.0-3.0) % Neut # (Auto) 4.30 (1.7-7.0) K/uL Lymph # (Auto) 1.00 (0.90-2.90) K/uL [place] # (Auto) 0.40 (0.00-0.90) K/UL Eos # (Auto) 0.15 (0.00-0.50) K/uL Baso # (Auto) 0.01 (0.00-0.30) K/uL Sodium 140 (135-149) mmol/L Potassium 5.0 (3.6-5.1) mmol/L Chloride 108 (96-114) mmol/L Carbon Dioxide 25 (20-32) mmol/L BUN 25 (7-30) mg/dL Creatinine 1.5 (0.5-1.5) mg/dL Estimated Creat Clear 26.14 Estimated GFR 34 ml/min Glucose 175 H (60-115) mg/dL Calcium 9.3 (8.4-10.6) mg/dL Total Bilirubin 0.5 (0.1-1.5) mg/dL AST 21 (12-35) U/L ALT 14 (4-35) U/L Alkaline Phosphatase 62 (40-150) U/L Total Protein 6.8 (6.0-8.3) g/dL Albumin 2.1 L (3.3-5.0) g/dL Stool Occult Blood Negative (Negative) Stl C. diff Tox B Gene Negative (Negative) Stl C. diff [id number] Presumptive Negative (Negative) POC Troponin I 0.00 L (0.01-0.04) ng/ml Imaging Data CT scan - head: Attestation: I have reviewed the pertinent imaging results. My impression: Right frontal lobe abnormality mass effect is noted Radiologist's impression: Brain parenchyma and extra-axial spaces: Vasogenic edema is identified within the right frontal lobe. This extends to the corpus callosum. Mild mass effect upon the surrounding structures. There is mass effect on the anterior horn of the right lateral ventricle. Mild midline shift of approximately 3 millimeters. No intracranial hemorrhage identified. Sulcal effacement is noted in the right frontal lobe. Mild diffuse cerebral atrophy. Intracranial vascular calcifications are noted. Skull base and calvarium: The visualized paranasal sinuses and mastoid air cells demonstrate no acute or significant findings.? The visualized orbits are grossly unremarkable.? No skull fractures.? IMPRESSION: Vasogenic edema in the right frontal lobe, suspicious for underlying mass lesion (metastases or primary brain tumor), or less likely, infection. Recommend further evaluation with contrast-enhanced CT and/or post-contrast MRI of the brain. Discharge Plan Discharge Clinical Impression: Vomiting and diarrhea, Atrial fibrillation, chronic Syncope Qualifiers: Syncope type: unspecified Qualified Code(s): R55 - Syncope and collapse Patient Disposition: Admitted As Observation Condition: Improved
--- NOTE | 2023-03-07 10:25 | ED.NURSE ---
pt incont of stool, cleaned pt up, tolerated well. pt only c/o being tired. ekg done
--- NOTE | 2023-03-07 10:36 | CRLHL7_ITS ---
For Patients: As a result of the Century Cures Act, medical imaging exams and procedure reports are released immediately into your electronic medical record. You may view this report before your referring provider. If you have questions, please contact your health care provider. INDICATION: Syncopal episode. TECHNIQUE: CT head without contrast. COMPARISON: None. FINDINGS: CSF spaces: Within normal limits for age. Brain parenchyma and extra-axial spaces: Vasogenic edema is identified within the right frontal lobe. This extends to the corpus callosum. Mild mass effect upon the surrounding structures. There is mass effect on the anterior horn of the right lateral ventricle. Mild midline shift of approximately 3 millimeters. No intracranial hemorrhage identified. Sulcal effacement is noted in the right frontal lobe. Mild diffuse cerebral atrophy. Intracranial vascular calcifications are noted. Skull base and calvarium: The visualized paranasal sinuses and mastoid air cells demonstrate no acute or significant findings. The visualized orbits are grossly unremarkable. No skull fractures. IMPRESSION: Vasogenic edema in the right frontal lobe, suspicious for underlying mass lesion (metastases or primary brain tumor), or less likely, infection. Recommend further evaluation with contrast-enhanced CT and/or post-contrast MRI of the brain. Please note that all CT scans at this facility use dose modulation, iterative reconstruction, and/or weight-based dosing when appropriate to reduce radiation dose to as low as reasonably achievable. Dictated by Juan Carlos Rinaldi MD @ 03/07/2023 12:59:44 PM (Electronically Signed)
[2023-03-07 10:58] LABS: Basophils Absolute Auto 0.01 K/uL (0.00-0.30); Basophils Percent Auto 0.2 % (0.0-3.0); Eosinophils Absolute Auto 0.15 K/uL (0.00-0.50); Eosinophils Percent Auto 2.5 % (0.0-7.0); Hematocrit 42.2 % (33.0-51.0); Hemoglobin* 12.9 gm/dL (12.0-16.0); Immature Granulocytes Abs Auto 0.01 K/uL (0.00-0.30); Immature Granulocytes Pct Auto 0.2 %; Lymphocytes Percent Auto 16.2 % (20-44); Mean Corpuscular HGB Conc 31 gm/dL (32-36); Mean Corpuscular Hemoglobin 27 pg (26-34); Mean Corpuscular Volume 89 fL (80-100); Monocytes Percent Auto 7.3 % (0.0-11.0); Neutrophils Percent Auto 73.6 % (42.0-72.0); Platelet Count* 194 K/uL (140-440); RDW Coefficient of Variation % 14.9 % (11.5-15.5); Red Blood Count 4.76 m/uL (4.00-5.20); White Blood Count* 5.91 K/uL (4.50-11.00)
[2023-03-07] MEDS: 0.9 % SODIUM CHLORIDE 500 ML 500 ML IV (11:00)
[2023-03-07 11:13] LABS: Albumin* 2.1 g/dL (3.3-5.0)
--- NOTE | 2023-03-07 11:13 | ED.NURSE ---
stool samples collected and sent to lab.
[2023-03-07 11:14] LABS: Chloride* 108 mmol/L (96-114); Sodium* 140 mmol/L (135-149)
--- NOTE | 2023-03-07 11:15 | ED.NURSE ---
pt states feeling much better
[2023-03-07 11:18] LABS: Alanine Aminotransferase* 14 U/L (4-35); Alkaline Phosphatase* 62 U/L (40-150); Aspartate Amino Transferase* 21 U/L (12-35); Bilirubin Total* 0.5 mg/dL (0.1-1.5); Blood Urea Nitrogen* 25 mg/dL (7-30); Calcium* 9.3 mg/dL (8.4-10.6); Carbon Dioxide* 25 mmol/L (20-32); Creatinine* 1.5 mg/dL (0.5-1.5); Est. Creatinine Clearance* 26.14; Estimated Glomerular Filt Rate 34 ml/min; Glucose* 175 mg/dL (60-115); Total Protein* 6.8 g/dL (6.0-8.3)
[2023-03-07 11:19] LABS: Fecal Occult Blood* Negative (Negative)
[2023-03-07 11:48] LABS: Slide Review Reflex No
[2023-03-07 12:19] LABS: C.Difficile Negative (Negative); CDIFFEPI 027 Presumptive Negative (Negative)
--- NOTE | 2023-03-07 13:26 | CRLHL7_ITS ---
For Patients: As a result of the Century Cures Act, medical imaging exams and procedure reports are released immediately into your electronic medical record. You may view this report before your referring provider. If you have questions, please contact your health care provider. Indication: Follow-up head mass seen on recent CT Technique: Volumetric multidetector CT images of the head were obtained with the administration of low osmolar intravenous contrast. 79 cc Isovue 370 low osmolar intravenous contrast Comparison: CT head without contrast March 07, 2023 Findings: There is no intra-axial or extra-axial fluid collection. There is again seen a circumscribed enhancing likely dural-based mass lesion within the anterior right frontal lobe measuring 2.2 x 2.0 centimeters in greatest dimension. There are no other enhancing mass lesions. There is effacement of the frontal horn of the right lateral ventricle. Otherwise the ventricles are grossly normal in size and position. There is severe vasogenic edema within the right frontal lobe with moderate focal mass effect and effacement of the frontal convexity. There is moderate chronic small vessel disease change again seen within the subcortical and periventricular white matter with old lacunar changes of the basal ganglia. No other abnormal contrast enhancement is appreciated. The orbits and their contents are grossly within normal limits. The bony calvarium is grossly intact. The paranasal sinuses are clear. The mastoid air cells are well aerated. Impression: Demonstration of a 2.2 x 2.0 centimeter circumscribed uniformly enhancing dural-based extra-axial mass centered within the right frontal lobe with marked para focal vasogenic edema likely representing an atypical or malignant meningioma. No other enhancing mass lesions or suspicious abnormalities are appreciated. Please note that all CT scans at this facility use dose modulation, iterative reconstruction, and/or weight-based dosing when appropriate to reduce radiation dose to as low as reasonably achievable. Dictated by Reinaldo Dacosta MD @ 03/07/2023 3:00:11 PM (Electronically Signed)
--- NOTE | 2023-03-07 13:32 | PM.IMHP1 ---
Hospitalist- H&P: HPI History of Present Illness Date Seen: 03/07/23 Chief complaint: Bradycardia Narrative: Kylah Davison is a 82 year old female who was brought to the ED by EMS this morning for an episode of AMS during breakfast with friends at [employer]. She used the restroom for a BM and returned to the table without any symptoms; then felt tired and remembers waking up as a friend called her name. A friend described the episode as <30 seconds with no responsiveness, a blank stare, and both body and head leaned to the R. Her whole body stiffened for a few seconds prior to responding again. She didn't seem to be postictal after the event. During transfer to the hospital, patient vomited x1 and had multiple episodes of nonbloody diarrhea, which resolved upon arrival to the ED. No recent illness, no sick contacts. In the ED, Kylah was found to have a Hgb of 12.9, normal electrolytes, BG 175, Cr 1.5 (outpatient baseline 1.2-1.4). EKG exhibits rate controlled atrial fibrillation without acute abnormalities. Upon arrival to the floor, we received formal radiology read of patient's head CT w/o contrast (concerning for vasogenic edema in the R frontal lobe); CT with IV contrast recommended. This was completed and a 2.2 x 2.0 cm mass was noted in the R frontal lobe with marked edema likely representing an atypical or malignant meningioma. Findings of imaging discussed with patient and family; they are interested in transfer to higher level of care facility for Neurosurgery management. Review of Systems Status of ROS: Reports: 10 or more systems reviewed and unremarkable except as noted in History and below Narrative: - Kylah notes that her balance has been a little off since her appendectomy in July 2022, no recent falls - patient and family specifically deny any recent illness or behavior change - no concern for cognitive impairment [facility] Medical History (Updated 03/07/23 @ 17:09 by Rosalee Lacy MD) Atrial fibrillation, chronic ?I48.20 - Chronic atrial fibrillation, unspecified (ICD-10) Tibia/fibula fracture ?S82.209A - Unspecified fracture of shaft of unspecified tibia, initial encounter for closed fracture (ICD-10) ?S82.409A - Unspecified fracture of shaft of unspecified fibula, initial encounter for closed fracture (ICD-10) Left ureteral stone ?N20.1 - Calculus of ureter (ICD-10) Macular degeneration ?H35.30 - Unspecified macular degeneration (ICD-10) Osteopenia ?M85.80 - Other specified disorders of bone density and structure, unspecified site (ICD-10) Diverticulosis ?K57.90 - Diverticulosis of intestine, part unspecified, without perforation or abscess without bleeding (ICD-10) Hypertension ?I10 - Essential (primary) hypertension (ICD-10) Glaucoma ?H40.9 - Unspecified glaucoma (ICD-10) Surgical History H/O cataract extraction ?Z98.49 - Cataract extraction status, unspecified eye (ICD-10) S/P ORIF (open reduction internal fixation) fracture ?Z98.890 - Other specified postprocedural states (ICD-10) ?Z87.81 - Personal history of (healed) traumatic fracture (ICD-10) H/O tubal ligation ?Z98.51 - Tubal ligation status (ICD-10) S/P cystoscopy with ureteral stent placement ?Z96.0 - Presence of urogenital implants (ICD-10) History of tonsillectomy ?Z90.89 - Acquired absence of other organs (ICD-10) Social History Narrative: lives with , grew up in [place], three adult kids. Luis (daughter) lives in [place] and helps her parents: [phone] What is your current living situation?: I presently have a place to live Problems where you live: no known problems Problems where you live details: n/a In the past 12 months, utilities in danger of being shut off: no In the past 12 mos, have been you worried that your food would run out before you had money to buy more?: never true In the past 12 mos, the food you bought just didn't last and you didn't have money to buy more?: never true Smoking Status: Never smoker Do you use any of these nicotine containing products: None Second hand tobacco smoke exposure: Yes (child) How often do you have a drink containing alcohol: monthly or less Alcohol type details: drink on new years How often do you have six or more drinks on one occasion: Never AUDIT-C Alcohol total score: 1 Non-prescribed substance use: denies use Caffeine: Yes How often does anyone, including family, friends and others, physically hurt you: never How often does anyone, including family, friends and others, insult or talk down to you: never How often does anyone, including family, friends and others, threaten you with harm: never How often does anyone, including family, friends and others, scream or curse at you: never service: No Meds Home Medications and Allergies Home Medications Medication Instructions Recorded Confirmed Type losartan 100 mg tablet 100 mg PO DAILY 07/24/22 03/07/23 History vit C 250 mg-vit E 90 mg-zinc 40 1 tab PO DAILY 07/24/22 03/07/23 History mg-copper 1 [id number] capsule (PreserVision AREDS-2) amlodipine 5 mg tablet 5 mg PO DAILY 03/07/23 03/07/23 History apixaban 2.5 mg tablet (Eliquis) 2.5 mg PO BID 03/07/23 03/07/23 History docusate sodium 100 mg capsule 100 mg PO HS 03/07/23 03/07/23 History (Col-Rite) Home Medication Comments: Last dose of Apixaban 03/07 am Allergies Allergy/AdvReac Type Severity Reaction Status Date / Time No Known Drug Allergies Allergy Verified 07/23/22 23:27 Exam Narrative: Exam Narrative: GEN: Alert and oriented, answering questions appropriately and nontoxic in appearance HEENT: Normal external ears, EOMIs bilaterally, no scleral icterus CV: Rate controlled atrial fibrillation R: LCTA bilaterally without concerning wheezing, rales, or rhonchi Skin: No concerning skin lesions or rashes on exposed skin Neuro: No focal deficits on limited exam, no resting tremor, no gait disturbance Psych: Appropriate Const: Vital Signs, click to edit/add: Vital Signs - 24 hr 03/07/23 10:00 03/07/23 10:11 03/07/23 10:30 Temperature 96.7 F L Pulse Rate 67 71 Pulse Rate [Apical ] 66 Pulse Rate [Pulse Oximeter] Respiratory Rate 18 Blood Pressure Blood Pressure [Ri ght Arm] Blood Pressure [Ri ght Upper Arm] 119/72 Pulse Oximetry 97 96 97 Oxygen Delivery Me od Room Air 03/07/23 10:31 03/07/23 10:32 03/07/23 11:00 Temperature Pulse Rate 62 69 58 L Pulse Rate [Apical ] Pulse Rate [Pulse Oximeter] Respiratory Rate Blood Pressure 120/82 Blood Pressure [Ri ght Arm] Blood Pressure [Ri ght Upper Arm] Pulse Oximetry 95 97 98 Oxygen Delivery Me thod 03/07/23 11:01 03/07/23 11:02 03/07/23 11:30 Temperature Pulse Rate 60 62 70 Pulse Rate [Apical ] Pulse Rate [Pulse Oximeter] Respiratory Rate Blood Pressure 113/57 L Blood Pressure [Ri ght Arm] Blood Pressure [Ri ght Upper Arm] Pulse Oximetry 98 98 97 [facility] 03/07/23 11:31 03/07/23 12:02 03/07/23 12:45 Temperature 97.8 F Pulse Rate 65 68 Pulse Rate [Apical ] Pulse Rate [Pulse Oximeter] 72 Respiratory Rate 16 Blood Pressure 125/75 Blood Pressure [Ri ght Arm] 140/64 H Blood Pressure [Ri ght Upper Arm] Pulse Oximetry 100 96 97 Oxygen Delivery [facility] Room Air 03/07/23 13:01 Temperature Pulse Rate 66 Pulse Rate [Apical ] Pulse Rate [Pulse Oximeter] Respiratory Rate Blood Pressure Blood Pressure [Ri ght Arm] Blood Pressure [Ri ght Upper Arm] Pulse Oximetry Oxygen Delivery [facility] Hospital[facility] - H&P: Result Labs Labs: Short CBC 03/07/23 Range/Units 10:40 WBC 5.91 (4.50-11.00) K/uL Hgb 12.9 (12.0-16.0) gm/dL Hct 42.2 (33.0-51.0) % Plt Count 194 (140-440) K/uL BMP 03/07/23 10:40 Sodium 140 Potassium 5.0 Chloride 108 Carbon Dioxide 25 BUN 25 Creatinine 1.5 Glucose 175 H Calcium 9.3 Liver Function 03/07/23 Range/Units 10:40 Total Bilirubin 0.5 (0.1-1.5) mg/dL AST 21 (12-35) U/L ALT 14 (4-35) U/L Alkaline Phosphatase 62 (40-150) U/L Albumin 2.1 L (3.3-5.0) g/dL Assessment and Plan Assessment and plan (1) Brain mass: Problem comment: - noted on CT 03/07/22 (formal radiology read below) - reviewed with Phillip Emmanuel Neuros[facility] JANENE at [facility], who recommends load of 10mg po Dexamethasone, 1g IV Keppra, and transfer to their facility for Neurosurgery management - accepted by Dr. Fajardo of Internal Medicine for transfer Impression: Demonstration of a 2.2 x 2.0 centimeter circumscribed uniformly enhancing dural-based extra-axial mass centered within the right frontal lobe with marked para focal vasogenic edema likely representing an atypical or malignant meningioma. No other enhancing mass lesions or suspicious abnormalities are appreciated. Status: Acute (2) Atrial fibrillation, chronic: Problem comment: - diagnosed 07/2022, rate controlled, follows with Cardiology as an outpatient - on Metoprolol and Eliquis Status: Acute (3) Syncope: Problem comment: - vs seizure, brain mass likely cause Status: Acute (4) CKD (chronic kidney disease): Problem comment: - baseline creatinine 1.2-1.4 Status: Acute (5) Hypertension: Problem comment: - age appropriate control on Amlodipine, Losartan, and Metoprolol Status: Acute
--- NOTE | 2023-03-07 14:13 | PC.NURSE ---
Shift Summary: Patient arrived to floor around 1230. Vitals stable and WNL, tele shows a-fib. SBA with gait belt. Alert and oriented. Denies pain/nausea.
[2023-03-07] MEDS: dexAMETHasone 4 MG TABLET 10 MG PO (18:07)
[2023-03-07] MEDS: METOPROLOL TARTRATE 50 MG TABLET PO (19:20)
--- NOTE | 2023-03-07 22:47 | PC.NURSE ---
Care provided from 1500 until patient's transfer at 2029. Pt transferred to [facility] for needed higher level of care, including neurosurgery consult. Pt vitals stable, Hr 60-80sbpm, continued known afib. Pt received ordered IV Keppra and Decardon PO and scheduled home med of Metoprolol 50mg this evening. A few family members at bedside throughout shift. Pt continent, up to bathroom, voiding, SBA. Tolerating PO intake. IV of 18g to L AC, saline locked. Pt and family updated on pt's new room number at [facility], daughter 'Pili' also called per request and updated. Pt left with all belongings, questions answered and report given to EMS. Pt transferred to [facility] at 2030 via EMS.
== END 2023-03-07 20:30 | disposition short-term general hospital (02) ==
LOC: ED 11:34 → MEDSURG 12:26
PROVIDERS: Admitting Provider Family Medicine; Emergency Provider Family Medicine; PCP Family Medicine; Visit Provider Family Medicine
DX: G93.89 Other specified disorders of brain (principal); R55 Syncope and collapse; I48.20 Chronic atrial fibrillation, unspecified; I12.9 Hypertensive chronic kidney disease with stage 1 through stage 4 chronic kidney disease, or unspecified chronic kidney disease; N18.9 Chronic kidney disease, unspecified; R41.82 Altered mental status, unspecified; R35.0 Frequency of micturition; R11.0 Nausea; R11.10 Vomiting, unspecified; R19.7 Diarrhea, unspecified; Z98.51 Tubal ligation status; Z98.890 Other specified postprocedural states; Z87.81 Personal history of (healed) traumatic fracture; Z98.49 Cataract extraction status, unspecified eye; Z96.0 Presence of urogenital implants; Z90.89 Acquired absence of other organs
CPT/HCPCS: 36415; 70450; 70460; 80053; 81001; 82270; 84484; 85025; 87493; 93005; 96361; 96374; 99285; A9270; G0378; J1953; J7120; Q9967

== ENCOUNTER 2023-03-07 20:18 | Outpatient (CLI) | payer MEDICARE, OTHER, SELFPAY | END 2023-03-07 20:19 | disposition home or self-care (01) | LOC: AMB 03-11 12:59 | PROVIDERS: PCP Family Medicine; Visit Provider Family Medicine | DX: R55 Syncope and collapse (principal) | CPT/HCPCS: A0425; A0426; A0428 ==